=== PATIENT | female | born 1955 ===

== ENCOUNTER 2020-10-19 06:11 | Inpatient (IN) | payer MEDICARE ==
[2020-10-20] MEDS: QUEtiapine 200 MG TAB PO SCH ×2 (01:02→22:10)
[2020-10-20] MEDS: ACETAMINOPHEN 325 MG TAB PO PRN ×3 (01:02→20:36)
--- NOTE | 2020-10-20 08:56 | History and Physical Report ---
GP History & Physical - History of Present Illness Date of admission: 10/19/20 Date of Examination: 10/20/20 Reason for Admission: Danger to self, Failure of Outpatient Treatment, Severe anxiety/depression History of Present Illness: Per Admission Note: pt reported having a lot of family confusion and miscommunication and animosity at home which was overwhelming for her; this resulted in her intentionally overdosing on valium to end her life. Wendy Bryan is a 65y/o female patient who was admitted to [facility] for depression and suicidal attempt. The patient is from [place], [place] and states she was having a lot of family issues. The patient says her 14y/o talks openly about sex and she has problems out of her. She says she is depressed and feels overwhelmed. The patient denies hallucinations of any kind. She says she has a history of Bipolar, and multiple personality disorder. She could not remember her meds. She denies any illicit drug use, alcohol, and nicotine use. The patient says her mind was racing last night but says she slept well after being given medication. PAST PSYCHIATRIC HISTORY: Diagnoses: Bipolar, multiple personality disorder Suicide attempts or Self-harm behavior: Denies Prior psychiatric hospitalizations: Denies Substance Abuse history: Denies Previous psychiatric medications tried: Could not remember Outpatient treatment: Yes PAST MEDICAL HISTORY: None reported Family Psychiatric History: None reported or documented SOCIAL HISTORY Marital Status: Living Arrangements: with mother and daughter Employment Status: Retired Access to guns/weapons: Denies Education: high school History of Abuse: Denies Legal History: None reported REVIEW OF SYSTEMS Constitutional: Negative for weight loss ENT: Negative for stridor Respiratory: Negative for cough or hemoptysis All other systems reviewed and are negative MENTAL STATUS EXAMINATION General Appearance and Behavior: Age appropriate, good hygiene, wearing appropriate clothes, fair eye contact, calm, cooperative Cooperation: Participating/engaged Psychomotor Behavior: Psychomotor normal Mood: depressed Affect and affective range: Congruent with stated mood Thought Process: goal directed Thought Content: hopelessness Speech: Normal rate, volume and rhythm Suicidal Ideation: Yes Homicidal Ideation: Denies Hallucinations: Denies Delusions: None elicited Impulse Control: Impaired Insight and Judgment: Limited insight and judgment Memory: Limited Attention: Normal Orientation: Alert, oriented Assessment and Plan (1) Bipolar Disorder Treatment Plan Patient admitted for inpatient psychiatric evaluation, medication adjustment and close monitoring The patient's behavior, mood, sleep and appetite will be closely monitored. Patient enrolled in individual and group therapeutic sessions and encouraged to attend. Patient provided with a safe and structured environment. Patient's physical health needs will be addressed by the Hospitalist. Hospitalist Consulted Labs including CBC, CMP, Lipid profile and Hemoglobin A1C levels ordered for baseline reference Social Assessment will be completed and the Genomics Scientist will work with patient and family to ensure a suitable and safe disposition Medication adjustment will be made as clinically indicated Restarted home medications Decreased Valium Usual Wellness Hinduism/Preservation: - Start Trazodone 50 mg po QHS & 50 mg po QHS PRN between 10 PM & 2 AM for insomnia - Start Melatonin 5 mg po QHS to promote circadian rhythm - Start [place]-3 for brain health, reduce impulsivity, and as adjunctive treatment for mood disorder, continue upon discharge given overall benefits. - Start B1 prophylaxis with 200 mg po for 5 days The patient agreed on the treatment plan, understood the risk, benefit, alternative treatment, potential consequence of no treatment, and gave informed consent. Initial Certification I certify that the inpatient psychiatric services are required for treatment that could reasonably be expected to improve the patient's condition for depression and suicidal thoughts Estimated days: 7 Post hospital care: primary care provider, psychiatric provider Legal Status: Voluntary Reaction to Hospitalization: Accepting Medications and Allergies Allergies Allergy/AdvReac Type Severity Reaction Status Date / Time No Known Allergies Allergy Verified 10/20/20 00:56 Home Medications Medication Instructions Recorded Confirmed Last Taken Type Acetaminophen [Tylenol] 2 tab PO Q6HR 10/20/20 10/20/20 Unknown History Amoxicillin/Potassium Clav 875 mg PO Q12HR 10/20/20 10/20/20 Unknown History [Augmentin 875-125 Tablet] Cyclobenzaprine [Flexeril 10 MG 10 mg PO TID 10/20/20 10/20/20 Unknown History TAB] Divalproex ER [Depakote ER] 500 mg PO BID 10/20/20 10/20/20 Unknown History Gabapentin 400 mg PO TID 10/20/20 10/20/20 Unknown History Meloxicam [Mobic] 15 mg PO DAILY 10/20/20 10/20/20 Unknown History Omeprazole 40 mg PO DAILY 10/20/20 10/20/20 Unknown History QUEtiapine [SEROquel] 200 mg PO QHS 10/20/20 10/20/20 Unknown History Sertraline [Zoloft] 50 mg PO DAILY 10/20/20 10/20/20 Unknown History Simvastatin 40 mg PO HS 10/20/20 10/20/20 Unknown History Venlafaxine HCl [Venlafaxine HCl 150 mg PO DAILY 10/20/20 10/20/20 Unknown History ER] diazePAM TAB [Valium] 5 mg PO BID 10/20/20 10/20/20 Unknown History traMADoL [Ultram 50 MG tab] 50 mg PO PRN PRN 10/20/20 10/20/20 Unknown History Active Meds: Active Medications Acetaminophen (Acetaminophen 325 Mg Tab) 650 mg PO Q6H PRN PRN Reason: Pain, Mild (1-3) Last Admin: 10/20/20 01:02 Dose: 650 mg Documented by: Quetiapine Fumarate (Quetiapine 200 Mg Tab) 200 mg PO QHS AMBREEN Last Admin: 10/20/20 01:02 Dose: 200 mg Documented by: Results - Results Labs/Vitals: Laboratory Last Values POC Glucose 82 mg/dL (70-105) 10/19/20 22:37 Last Vital Signs Temp Pulse Resp 18 10/20/20 01:02 BP Pulse Ox Physical Examination - Constitutional Vitals: Vital Signs Temp Pulse Resp BP Pulse Ox 18 10/20/20 01:02 Mental Status Exam - Vital signs Last Vital Signs Temp Pulse Resp 18 10/20/20 01:02 BP Pulse Ox Physician Certification - Certification Statement Physician Certification Statement: This is an acknowledgement statement that WENDY BRYAN is a 65 year old F who requires inpatient psychiatric admission for treatment which could reasonably be expected to improve the patient's condition for Estimated period of time patient will need to remain in the hospital: [ ] Plan for post-hospital care: [ ]
--- NOTE | 2020-10-20 14:26 | Consultation ---
History of Present Illness - Reason for Consult Consult date: 10/20/20 Medical consult Requesting physician: CAROLINE WHEAT - History of Present Illness 65-year-old female patient with significant past medical history of multiple suicide attempts drug overdose , severe depression and anxiety disorder Presented to the physician's office with suicidal attempts per her daughter with intentional overdose with Valium; Patient was stabilized evaluated by [facility] psych admitted today unit, hospitalist services were consulted to resume home medications. Patient is not on home oxygen At the time of my evaluation patient did not have any chest pain or shortness of breath No nausea vomiting or abdominal pain No headache dizziness weakness or numbness Patient's responds to questions appropriately Vital signs reviewed Past History Past Medical History: COPD, hyperlipidemia, other (Bronchial asthma, depression) Past Surgical History: Other (Gastric bypass surgery, abdominoplasty) Social history: full code. denies: smoking, alcohol abuse, prescription drug abuse Family history: no significant family history Medications and Allergies Allergies Allergy/AdvReac Type Severity Reaction Status Date / Time No Known Allergies Allergy Verified 10/20/20 00:56 Home Medications Medication Instructions Recorded Confirmed Last Taken Type Acetaminophen [Tylenol] 2 tab PO Q6HR 10/20/20 10/20/20 Unknown History Amoxicillin/Potassium Clav 875 mg PO Q12HR 10/20/20 10/20/20 Unknown History [Augmentin 875-125 Tablet] Cyclobenzaprine [Flexeril 10 MG 10 mg PO TID 10/20/20 10/20/20 Unknown History TAB] Divalproex ER [Depakote ER] 500 mg PO BID 10/20/20 10/20/20 Unknown History Gabapentin 400 mg PO TID 10/20/20 10/20/20 Unknown History Meloxicam [Mobic] 15 mg PO DAILY 10/20/20 10/20/20 Unknown History Omeprazole 40 mg PO DAILY 10/20/20 10/20/20 Unknown History QUEtiapine [SEROquel] 200 mg PO QHS 10/20/20 10/20/20 Unknown History Sertraline [Zoloft] 50 mg PO DAILY 10/20/20 10/20/20 Unknown History Simvastatin 40 mg PO HS 10/20/20 10/20/20 Unknown History Venlafaxine HCl [Venlafaxine HCl 150 mg PO DAILY 10/20/20 10/20/20 Unknown History ER] diazePAM TAB [Valium] 5 mg PO BID 10/20/20 10/20/20 Unknown History traMADoL [Ultram 50 MG tab] 50 mg PO PRN PRN 10/20/20 10/20/20 Unknown History Active Meds: Active Medications Acetaminophen (Acetaminophen 325 Mg Tab) 650 mg PO Q6H PRN PRN Reason: Pain, Mild (1-3) Last Admin: 10/20/20 01:02 Dose: 650 mg Documented by: Quetiapine Fumarate (Quetiapine 200 Mg Tab) 200 mg PO QHS AMBREEN Last Admin: 10/20/20 01:02 Dose: 200 mg Documented by: Review of Systems Constitutional: weakness, no fever, no chills Ears, nose, mouth and throat: no nasal congestion, no nasal discharge Cardiovascular: no chest pain, no orthopnea, no palpitations Respiratory: no cough, no shortness of breath Gastrointestinal: no nausea, no vomiting, no diarrhea Genitourinary Female: no pelvic pain, no flank pain, no dysuria Musculoskeletal: no myalgias, no arthritis Integumentary: no rash, no lesions Neurological: no paralysis, no weakness, no parathesias Psychiatric: suicidal ideation, disorientation, depression, no anxiety, no memory loss Endocrine: no cold intolerance, no heat intolerance Hematologic/Lymphatic: no easy bruising, no easy bleeding Allergic/Immunologic: no urticaria, no allergic rhinitis Exam - Constitutional Vitals: Temp Pulse Resp BP Pulse Ox 97.1 F L 110 H 18 113/78 94 10/20/20 10:49 10/20/20 10:49 10/20/20 10:49 10/20/20 10:49 10/20/20 10:49 General appearance: Present: no acute distress, well-nourished - EENT Eyes: Present: PERRL, EOM intact - Neck Neck: Present: supple, normal ROM - Respiratory Respiratory effort: normal Respiratory: bilateral: rales, negative: rhonchi - Cardiovascular Rhythm: regular Heart Sounds: Present: S1 & S2 - Extremities Extremities: no ischemia, pulses intact - Abdominal General gastrointestinal: Present: soft, non-tender, tender - Integumentary Integumentary: Present: clear, warm - Musculoskeletal Musculoskeletal: strength equal bilaterally, generalized weakness - Psychiatric Psychiatric: appropriate mood/affect Results - Labs CBC & Chem 7: 10/20/20 14:46 10/20/20 14:46 Assessment and Plan --Possible drug overdose; Supportive care, closely monitor Psych following --History of major depression; Management per psych --History of bronchial asthma; Albuterol inhalers/nebulizers as needed --History of dyslipidemia; Continue statin --Possible UTI; patient was advised Augmentin prior to this admission Resume home Augmentin --Obesity; BMI 30.1 Patient needs weight reduction when medically stable --DVT prophylaxis; SCD while resting Patient is 1013 status in [facility] Management per [facility] We will closely monitor the patient and adjust management as needed Thank you for this consultation call us with questions We will follow the patient as l as needed
[2020-10-20 15:03] LABS: Basophils % (Auto) 0.6 % (0.0-1.8); Eosinophils # (Auto) 0.1 K/mm3 (0.0-0.4); Hematocrit 39.5 % (30.3-42.9); Hemoglobin 12.9 gm/dl (10.1-14.3); Lymphocytes # (Auto) 1.5 K/mm3 (1.2-5.4); Lymphocytes % (Auto) 29.7 % (13.4-35.0); Mean Corpuscular HGB Conc 33 % (30-34); Mean Corpuscular Volume 89 fl (79-97); Monocytes # (Auto) 0.5 K/mm3 (0.0-0.8); Monocytes % (Auto) 10.2 % (0.0-7.3); Platelet Count 249 K/mm3 (140-440); Red Blood Count 4.43 M/mm3 (3.65-5.03); Red Cell Distribution Width 14.9 % (13.2-15.2)
[2020-10-20 15:25] LABS: Alanine Aminotransferase 11 units/L (7-56); Albumin 3.4 g/dL (3.9-5); Blood Urea Nitrogen 10 mg/dL (7-17); Calcium 9.7 mg/dL (8.4-10.2); Chol/HDL Ratio 3.94 %; HDL Cholesterol 51 mg/dL (40-59); Hemolysis Index 5; LDL Cholesterol,Direct 120 mg/dL (50-130)
[2020-10-20 15:27] LABS: BUN/Creatinine Ratio 14
[2020-10-20] MEDS: CYCLOBENZAPRINE 10 MG TAB PO SCH (20:36)
[2020-10-20] MEDS: AMOXICILLIN/K CLAV 875/125MG TAB PO SCH (22:10)
[2020-10-20] MEDS: DIVALPROEX ER 500 MG TAB PO SCH (22:10)
[2020-10-21] MEDS: ACETAMINOPHEN 325 MG TAB PO PRN (06:00)
--- NOTE | 2020-10-21 07:48 | Progress Note ---
Subjective Date of service: 10/21/20 Principal diagnosis: MDD Subjective Comment: Per Nurse Note: Patient has spent most of the day in her room resting in bed. She has had a fair appetite. She complained of headache and received tylenol 650 mg. Pt has a uti and md ordered antibiotic. Patient present with poor eye contact. She denies ah/vh/hi but endorses vague si. Will continue to monitor patient for safety. The patient was seen today, she verbalized feeling a little depressed but better. She says she's been having body aches and didn't sleep well due to this. She also says she's been feeling anxious. She denies hallucinations of any kind. She has passive suicidal thoughts, she states "not really" when asked. She denies homicidal thoughts. She says "I wanna get home where it's warm." Reason for continued inpatient treatment: The patient had a suicidal attempt per OD, and endorses passive suicidal thoughts. Will continue to monitor her to ensue her safety upon discharge. REVIEW OF SYSTEMS Constitutional: Negative for weight loss ENT: Negative for stridor Respiratory: Negative for cough or hemoptysis All other systems reviewed and are negative MENTAL STATUS EXAMINATION General Appearance and Behavior: Age appropriate, good hygiene, wearing appropriate clothes, fair eye contact, calm, cooperative Cooperation: Participating/engaged Psychomotor Behavior: Psychomotor normal Mood: depressed, but better Affect and affective range: Congruent with stated mood Thought Process: goal directed Thought Content: hopelessness Speech: Normal rate, volume and rhythm Suicidal Ideation: Yes Homicidal Ideation: Denies Hallucinations: Denies Delusions: None elicited Impulse Control: Impaired Insight and Judgment: Limited insight and judgment Memory: Limited Attention: Normal Orientation: Alert, oriented Assessment and Plan (1) Bipolar Disorder Treatment Plan Patient admitted for inpatient psychiatric evaluation, medication adjustment and close monitoring The patient's behavior, mood, sleep and appetite will be closely monitored. Patient enrolled in individual and group therapeutic sessions and encouraged to attend. Patient provided with a safe and structured environment. Patient's physical health needs will be addressed by the Hospitalist. Hospitalist Consulted Labs including CBC, CMP, Lipid profile and Hemoglobin A1C levels ordered for baseline reference Valproic Level Social Assessment will be completed and the Roll Forming Machine Operator will work with patient and family to ensure a suitable and safe disposition Medication adjustment will be made as clinically indicated Decreased Valium 5mg po qhs Usual Wellness Voodoo/Preservation: - Start Trazodone 50 mg po QHS & 50 mg po QHS PRN between 10 PM & 2 AM for insomnia - Start Melatonin 5 mg po QHS to promote circadian rhythm - Start [place]-3 for brain health, reduce impulsivity, and as adjunctive treatment for mood disorder, continue upon discharge given overall benefits. - Start B1 prophylaxis with 200 mg po for 5 days The patient agreed on the treatment plan, understood the risk, benefit, alternative treatment, potential consequence of no treatment, and gave informed consent. Initial Certification I certify that the inpatient psychiatric services are required for treatment that could reasonably be expected to improve the patient's condition for depression and suicidal thoughts Estimated days: 5 Post hospital care: primary care provider, psychiatric provider Medications and Allergies Allergies Allergy/AdvReac Type Severity Reaction Status Date / Time No Known Allergies Allergy Verified 10/20/20 00:56 Home Medications Medication Instructions Recorded Confirmed Last Taken Type Acetaminophen [Tylenol] 2 tab PO Q6HR 10/20/20 10/20/20 Unknown History Amoxicillin/Potassium Clav 875 mg PO Q12HR 10/20/20 10/20/20 Unknown History [Augmentin 875-125 Tablet] Cyclobenzaprine [Flexeril 10 MG 10 mg PO TID 10/20/20 10/20/20 Unknown History TAB] Divalproex ER [Depakote ER] 500 mg PO BID 10/20/20 10/20/20 Unknown History Gabapentin 400 mg PO TID 10/20/20 10/20/20 Unknown History Meloxicam [Mobic] 15 mg PO DAILY 10/20/20 10/20/20 Unknown History Omeprazole 40 mg PO DAILY 10/20/20 10/20/20 Unknown History QUEtiapine [SEROquel] 200 mg PO QHS 10/20/20 10/20/20 Unknown History Sertraline [Zoloft] 50 mg PO DAILY 10/20/20 10/20/20 Unknown History Simvastatin 40 mg PO HS 10/20/20 10/20/20 Unknown History Venlafaxine HCl [Venlafaxine HCl 150 mg PO DAILY 10/20/20 10/20/20 Unknown History ER] diazePAM TAB [Valium] 5 mg PO BID 10/20/20 10/20/20 Unknown History traMADoL [Ultram 50 MG tab] 50 mg PO PRN PRN 10/20/20 10/20/20 Unknown History Active Meds: Active Medications Acetaminophen (Acetaminophen 325 Mg Tab) 650 mg PO Q6H PRN PRN Reason: Pain, Mild (1-3) Last Admin: 10/21/20 06:00 Dose: 650 mg Documented by: Amoxicillin/Clavulanate Potassium (Amoxicillin/K Clav 875/125mg Tab) 1 each PO Q12HR [facility]; Protocol Stop: 10/27/20 10:01 Last Admin: 10/20/20 22:10 Dose: 1 each Documented by: Cyclobenzaprine HCl (Cyclobenzaprine 10 Mg Tab) 10 mg PO TID [facility] Last Admin: 10/20/20 20:36 Dose: 10 mg Documented by: Divalproex Sodium (Divalproex Er 500 Mg Tab) 500 mg PO BID [facility] Last Admin: 10/20/20 22:10 Dose: 500 mg Documented by: Meloxicam (Meloxicam 7.5 Mg Tab) 15 mg PO QDAY [facility] Quetiapine Fumarate (Quetiapine 200 Mg Tab) 200 mg PO QHS [facility] Last Admin: 10/20/20 22:10 Dose: 200 mg Documented by: Sertraline HCl (Sertraline 50 Mg Tab) 50 mg PO DAILY [facility] Results - Results Labs/Vitals: Laboratory Last Values WBC 5.1 K/mm3 (4.5-11.0) 10/20/20 14:46 RBC 4.43 M/mm3 (3.65-5.03) 10/20/20 14:46 Hgb 12.9 gm/dl (10.1-14.3) 10/20/20 14:46 Hct 39.5 % (30.3-42.9) 10/20/20 14:46 MCV 89 fl (79-97) 10/20/20 14:46 MCH 29 pg (28-32) 10/20/20 14:46 MCHC 33 % (30-34) 10/20/20 14:46 RDW 14.9 % (13.2-15.2) 10/20/20 14:46 Plt Count 249 K/mm3 (140-440) 10/20/20 14:46 Lymph % (Auto) 29.7 % (13.4-35.0) 10/20/20 14:46 Lares % (Auto) 10.2 % (0.0-7.3) H 10/20/20 14:46 Eos % (Auto) 2.0 % (0.0-4.3) 10/20/20 14:46 Baso % (Auto) 0.6 % (0.0-1.8) 10/20/20 14:46 Lymph # (Auto) 1.5 K/mm3 (1.2-5.4) 10/20/20 14:46 Lares # (Auto) 0.5 K/mm3 (0.0-0.8) 10/20/20 14:46 Eos # (Auto) 0.1 K/mm3 (0.0-0.4) 10/20/20 14:46 Baso # (Auto) 0.0 K/mm3 (0.0-0.1) 10/20/20 14:46 Seg Neutrophils % 57.5 % (40.0-70.0) 10/20/20 14:46 Seg Neutrophils # 2.9 K/mm3 (1.8-7.7) 10/20/20 14:46 Sodium 141 mmol/L (137-145) 10/20/20 14:46 Potassium 4.8 mmol/L (3.6-5.0) 10/20/20 14:46 Chloride 103.0 mmol/L (98-107) 10/20/20 14:46 Carbon Dioxide 30 mmol/L (22-30) 10/20/20 14:46 Anion Gap 13 mmol/L 10/20/20 14:46 BUN 10 mg/dL (7-17) 10/20/20 14:46 Creatinine 0.7 mg/dL (0.6-1.2) 10/20/20 14:46 Estimated GFR > 60 ml/min 10/20/20 14:46 BUN/Creatinine Ratio 14 % 10/20/20 14:46 Glucose 110 mg/dL (65-100) H 10/20/20 14:46 POC Glucose 82 mg/dL (70-105) 10/19/20 22:37 Hemoglobin A1c 5.0 % (4-6) 10/20/20 14:46 Calcium 9.7 mg/dL (8.4-10.2) 10/20/20 14:46 Total Bilirubin < 0.20 mg/dL (0.1-1.2) 10/20/20 14:46 AST 15 units/L (5-40) 10/20/20 14:46 ALT 11 units/L (7-56) 10/20/20 14:46 Alkaline Phosphatase 96 units/L (35-129) 10/20/20 14:46 Total Protein 6.7 g/dL (6.3-8.2) 10/20/20 14:46 Albumin 3.4 g/dL (3.9-5) L 10/20/20 14:46 Albumin/Globulin Ratio 1.0 % 10/20/20 14:46 Triglycerides 194 mg/dL (2-149) H 10/20/20 14:46 Cholesterol 201 mg/dL (50-199) H 10/20/20 14:46 LDL Cholesterol Direct 120 mg/dL (50-130) 10/20/20 14:46 HDL Cholesterol 51 mg/dL (40-59) 10/20/20 14:46 Cholesterol/HDL Ratio 3.94 % 10/20/20 14:46 TSH 4.050 mlU/mL (0.270-4.200) 10/20/20 14:46 Last Vital Signs Temp 97.6 F 10/20/20 22:00 Pulse 110 H 10/20/20 22:00 Resp 18 10/21/20 06:00 BP 101/55 10/20/20 22:00 Pulse Ox 96 10/20/20 22:00
[2020-10-21] MEDS: MELOXICAM 7.5 MG TAB PO SCH (09:08)
[2020-10-21] MEDS: CYCLOBENZAPRINE 10 MG TAB PO SCH ×3 (09:08→21:27)
[2020-10-21] MEDS: GABAPENTIN 100 MG CAP PO SCH ×3 (09:08→21:28)
[2020-10-21] MEDS: DIVALPROEX ER 500 MG TAB PO SCH ×2 (09:09→21:28)
[2020-10-21] MEDS: AMOXICILLIN/K CLAV 875/125MG TAB PO SCH ×2 (09:09→21:27)
[2020-10-21] MEDS ORDERED: NON-FORMULARY EACH (Meloxicam [Mobic] 15 MG Tablet) PO SCH (10:00)
[2020-10-21] MEDS ORDERED: SERTRALINE 50 MG TAB PO SCH (10:00)
[2020-10-21] MEDS ORDERED: NON-FORMULARY EACH (Acetaminophen [Tylenol] 325 MG Capsule) PO SCH (12:00)
[2020-10-21] MEDS: ACETAMINOPHEN 325 MG TAB PO SCH ×2 (12:18→17:54)
--- NOTE | 2020-10-21 20:11 | Progress Note ---
Assessment and Plan Assessment and plan: --Possible drug overdose; Supportive care, closely monitor Psych following, no new complaints --History of major depression; Management per psych Patient denies depressive thoughts, denies suicidal ideation --History of bronchial asthma; Albuterol inhalers/nebulizers as needed --History of dyslipidemia; Continue statin --Possible UTI; patient was advised Augmentin prior to this admission Resume home Augmentin --Obesity; BMI 30.1 Patient needs weight reduction when medically stable --DVT prophylaxis; SCD while resting Patient is 1013 status in [facility] psych Management per [facility] psych We will closely monitor the patient and adjust management as needed Continue current management Plan of care reviewed with the patient and her nurse Call us with any questions History Interval history: I have seen and examined the patient today Patient is very cheerful and happy sitting in the activities room Says that she feels better, no new complaints Vital signs noted Hospitalist Physical - Constitutional Vitals: Temp Pulse Resp BP Pulse Ox 97.3 F L 111 H 18 96/50 94 10/21/20 09:20 10/21/20 09:20 10/21/20 17:54 10/21/20 09:20 10/21/20 09:20 General appearance: Present: no acute distress, well-nourished - EENT Eyes: Present: PERRL, EOM intact - Neck Neck: Present: supple, normal ROM - Respiratory Respiratory effort: normal Respiratory: bilateral: diminished, negative: rales, rhonchi, wheezing - Cardiovascular Rhythm: regular Heart Sounds: Present: S1 & S2 - Extremities Extremities: no ischemia, No edema - Abdominal General gastrointestinal: soft, non-tender, non-distended, normal bowel sounds - Integumentary Integumentary: Present: clear, warm - Psychiatric Psychiatric: appropriate mood/affect, cooperative - Neurologic Neurologic: CNII-XII intact, moves all extremities Results - Labs CBC & Chem 7: 10/20/20 14:46 10/20/20 14:46 Labs: Laboratory Last Values WBC 5.1 K/mm3 (4.5-11.0) 10/20/20 14:46 RBC 4.43 M/mm3 (3.65-5.03) 10/20/20 14:46 Hgb 12.9 gm/dl (10.1-14.3) 10/20/20 14:46 Hct 39.5 % (30.3-42.9) 10/20/20 14:46 MCV 89 fl (79-97) 10/20/20 14:46 MCH 29 pg (28-32) 10/20/20 14:46 MCHC 33 % (30-34) 10/20/20 14:46 RDW 14.9 % (13.2-15.2) 10/20/20 14:46 Plt Count 249 K/mm3 (140-440) 10/20/20 14:46 Lymph % (Auto) 29.7 % (13.4-35.0) 10/20/20 14:46 [place] % (Auto) 10.2 % (0.0-7.3) H 10/20/20 14:46 Eos % (Auto) 2.0 % (0.0-4.3) 10/20/20 14:46 Baso % (Auto) 0.6 % (0.0-1.8) 10/20/20 14:46 Lymph # (Auto) 1.5 K/mm3 (1.2-5.4) 10/20/20 14:46 [place] # (Auto) 0.5 K/mm3 (0.0-0.8) 10/20/20 14:46 Eos # (Auto) 0.1 K/mm3 (0.0-0.4) 10/20/20 14:46 Baso # (Auto) 0.0 K/mm3 (0.0-0.1) 10/20/20 14:46 Seg Neutrophils % 57.5 % (40.0-70.0) 10/20/20 14:46 Seg Neutrophils # 2.9 K/mm3 (1.8-7.7) 10/20/20 14:46 Sodium 141 mmol/L (137-145) 10/20/20 14:46 Potassium 4.8 mmol/L (3.6-5.0) 10/20/20 14:46 Chloride 103.0 mmol/L (98-107) 10/20/20 14:46 Carbon Dioxide 30 mmol/L (22-30) 10/20/20 14:46 Anion Gap 13 mmol/L 10/20/20 14:46 BUN 10 mg/dL (7-17) 10/20/20 14:46 Creatinine 0.7 mg/dL (0.6-1.2) 10/20/20 14:46 Estimated GFR > 60 ml/min 10/20/20 14:46 BUN/Creatinine Ratio 14 % 10/20/20 14:46 Glucose 110 mg/dL (65-100) H 10/20/20 14:46 POC Glucose 82 mg/dL (70-105) 10/19/20 22:37 Hemoglobin A1c 5.0 % (4-6) 10/20/20 14:46 Calcium 9.7 mg/dL (8.4-10.2) 10/20/20 14:46 Total Bilirubin < 0.20 mg/dL (0.1-1.2) 10/20/20 14:46 AST 15 units/L (5-40) 10/20/20 14:46 ALT 11 units/L (7-56) 10/20/20 14:46 Alkaline Phosphatase 96 units/L (35-129) 10/20/20 14:46 Total Protein 6.7 g/dL (6.3-8.2) 10/20/20 14:46 Albumin 3.4 g/dL (3.9-5) L 10/20/20 14:46 Albumin/Globulin Ratio 1.0 % 10/20/20 14:46 Triglycerides 194 mg/dL (2-149) H 10/20/20 14:46 Cholesterol 201 mg/dL (50-199) H 10/20/20 14:46 LDL Cholesterol Direct 120 mg/dL (50-130) 10/20/20 14:46 HDL Cholesterol 51 mg/dL (40-59) 10/20/20 14:46 Cholesterol/HDL Ratio 3.94 % 10/20/20 14:46 TSH 4.050 mlU/mL (0.270-4.200) 10/20/20 14:46 Valproic Acid 12.8 ug/mL (50-100) L 10/21/20 08:39 Holt/IV: Voiding Method Toilet Active Medications - Current Medications Current Medications: Generic Name Dose Route Start Last Admin Trade Name Freq PRN Reason Stop Dose Admin Acetaminophen 650 mg 10/21/20 12:00 10/21/20 17:54 Acetaminophen 325 Mg Tab PO 650 mg Q6HR AMBREEN Administration Amoxicillin/Clavulanate Potassium 1 each 10/20/20 22:00 10/21/20 09:09 Amoxicillin/K Clav 875/125mg Tab PO 10/27/20 10:01 1 each Q12HR AMBREEN Administration Protocol Cyclobenzaprine HCl 10 mg 10/20/20 20:00 10/21/20 14:01 Cyclobenzaprine 10 Mg Tab PO 10 mg TID AMBREEN Administration Diazepam 5 mg 10/21/20 22:00 Diazepam 5 Mg Tab PO QHS AMBREEN Divalproex Sodium 500 mg 10/20/20 22:00 10/21/20 09:09 Divalproex Er 500 Mg Tab PO 500 mg BID AMBREEN Administration Gabapentin 200 mg 10/21/20 09:00 10/21/20 14:01 Gabapentin 100 Mg Cap PO 200 mg TID AMBREEN Administration Meloxicam 15 mg 10/21/20 10:00 10/21/20 09:08 Meloxicam 7.5 Mg Tab PO 15 mg QDAY AMBREEN Administration Quetiapine Fumarate 200 mg 10/20/20 01:00 10/20/20 22:10 Quetiapine 200 Mg Tab PO 200 mg QHS AMBREEN Administration Sertraline HCl 50 mg 10/21/20 10:00 10/21/20 09:09 Sertraline 50 Mg Tab PO 50 mg DAILY AMBREEN Administration
[2020-10-21] MEDS: QUEtiapine 200 MG TAB PO SCH (21:27)
[2020-10-21] MEDS ORDERED: diazePAM 5 MG TAB PO SCH (22:00)
[2020-10-22] MEDS: ACETAMINOPHEN 325 MG TAB PO SCH ×4 (02:30→17:45)
--- NOTE | 2020-10-22 08:49 | Progress Note ---
Subjective Date of service: 10/22/20 Principal diagnosis: MDD Subjective Comment: Per Nurse Note: Pt received in the dayroom A&Ox4 and calm. Pt denies AVH, HI and SI, she states "I feel so much better". Close monitoring continues. The patient was seen today, she is withdrawn and appears down. She denies SI/HI, but it doesn't appear the patient is being upfront. She's reported more than once that she "feels better." When asking the patient how can I believe she want hurt herself again, she replies "because I'm sure the doctor wont give me any more Valium." This lets me know the patient would attempt to hurt herself again. I state to the patient that not having Valium is passive suicidal thoughts. The patient then burst into tears and states "yes, if I was pushed then I would hurt myself." She says "If things are bad, I just don't know." Reason for continued inpatient treatment: The patient had a suicidal attempt per OD, and endorses passive suicidal thoughts. The patient is being weaned off of long-term use of Valium, this can only be done safely inpatient. Valium is also the patient's means of ending her life. Will continue to treat and monitor this patient to ensue her safety upon discharge. REVIEW OF SYSTEMS Constitutional: Negative for weight loss ENT: Negative for stridor Respiratory: Negative for cough or hemoptysis All other systems reviewed and are negative MENTAL STATUS EXAMINATION General Appearance and Behavior: Age appropriate, good hygiene, wearing appropriate clothes, fair eye contact, withdrawn, cooperative Cooperation: Participating/engaged Psychomotor Behavior: Psychomotor normal Mood: depressed Affect and affective range: Congruent with stated mood, tearful, restricted Thought Process: goal directed Thought Content: hopelessness Speech: Normal rate, volume and rhythm Suicidal Ideation: Yes Homicidal Ideation: Denies Hallucinations: Denies Delusions: None elicited Impulse Control: Impaired Insight and Judgment: Limited insight and judgment Memory: Limited Attention: Normal Orientation: Alert, oriented Assessment and Plan (1) Bipolar Disorder Treatment Plan Patient admitted for inpatient psychiatric evaluation, medication adjustment and close monitoring The patient's behavior, mood, sleep and appetite will be closely monitored. Patient enrolled in individual and group therapeutic sessions and encouraged to attend. Patient provided with a safe and structured environment. Patient's physical health needs will be addressed by the Hospitalist. Hospitalist Consulted Labs including CBC, CMP, Lipid profile and Hemoglobin A1C levels ordered for baseline reference Valproic Level level 12.8 Social Assessment will be completed and the Bicycle Fitter will work with patient and family to ensure a suitable and safe disposition Medication adjustment will be made as clinically indicated Decreased Valium 2mg po qhs Increase Depakote DR 500mg po TID Increased Zoloft 75mg (1.5 tab) qd Usual Wellness Congregational/Preservation: - Start Trazodone 50 mg po QHS & 50 mg po QHS PRN between 10 PM & 2 AM for insomnia - Start Melatonin 5 mg po QHS to promote circadian rhythm - Start [place]-3 for brain health, reduce impulsivity, and as adjunctive treatment for mood disorder, continue upon discharge given overall benefits. - Start B1 prophylaxis with 200 mg po for 5 days The patient agreed on the treatment plan, understood the risk, benefit, alternative treatment, potential consequence of no treatment, and gave informed consent. Estimated days: 5 Post hospital care: primary care provider, psychiatric provider Medications and Allergies Allergies Allergy/AdvReac Type Severity Reaction Status Date / Time No Known Allergies Allergy Verified 10/20/20 00:56 Home Medications Medication Instructions Recorded Confirmed Last Taken Type Acetaminophen [Tylenol] 2 tab PO Q6HR 10/20/20 10/20/20 Unknown History Amoxicillin/Potassium Clav 875 mg PO Q12HR 10/20/20 10/20/20 Unknown History [Augmentin 875-125 Tablet] Cyclobenzaprine [Flexeril 10 MG 10 mg PO TID 10/20/20 10/20/20 Unknown History TAB] Divalproex ER [Depakote ER] 500 mg PO BID 10/20/20 10/20/20 Unknown History Gabapentin 400 mg PO TID 10/20/20 10/20/20 Unknown History Meloxicam [Mobic] 15 mg PO DAILY 10/20/20 10/20/20 Unknown History Omeprazole 40 mg PO DAILY 10/20/20 10/20/20 Unknown History QUEtiapine [SEROquel] 200 mg PO QHS 10/20/20 10/20/20 Unknown History Sertraline [Zoloft] 50 mg PO DAILY 10/20/20 10/20/20 Unknown History Simvastatin 40 mg PO HS 10/20/20 10/20/20 Unknown History Venlafaxine HCl [Venlafaxine HCl 150 mg PO DAILY 10/20/20 10/20/20 Unknown History ER] diazePAM TAB [Valium] 5 mg PO BID 10/20/20 10/20/20 Unknown History traMADoL [Ultram 50 MG tab] 50 mg PO PRN PRN 10/20/20 10/20/20 Unknown History Active Meds: Active Medications Acetaminophen (Acetaminophen 325 Mg Tab) 650 mg PO Q6HR [facility] Last Admin: 10/22/20 06:37 Dose: 650 mg Documented by: Amoxicillin/Clavulanate Potassium (Amoxicillin/K Clav 875/125mg Tab) 1 each PO Q12HR [facility]; Protocol Stop: 10/27/20 10:01 Last Admin: 10/21/20 21:27 Dose: 1 each Documented by: Cyclobenzaprine HCl (Cyclobenzaprine 10 Mg Tab) 10 mg PO TID [facility] Last Admin: 10/21/20 21:27 Dose: 10 mg Documented by: Diazepam (Diazepam 5 Mg Tab) 5 mg PO QHS [facility] Last Admin: 10/21/20 21:29 Dose: 5 mg Documented by: Divalproex Sodium (Divalproex Er 500 Mg Tab) 500 mg PO BID [facility] Last Admin: 10/21/20 21:28 Dose: 500 mg Documented by: Gabapentin (Gabapentin 100 Mg Cap) 200 mg PO TID [facility] Last Admin: 10/21/20 21:28 Dose: 200 mg Documented by: Meloxicam (Meloxicam 7.5 Mg Tab) 15 mg PO QDAY [facility] Last Admin: 10/21/20 09:08 Dose: 15 mg Documented by: Quetiapine Fumarate (Quetiapine 200 Mg Tab) 200 mg PO QHS [facility] Last Admin: 10/21/20 21:27 Dose: 200 mg Documented by: Sertraline HCl (Sertraline 50 Mg Tab) 50 mg PO DAILY [facility] Last Admin: 10/21/20 09:09 Dose: 50 mg Documented by: Results - Results Labs/Vitals: Laboratory Last Values WBC 5.1 K/mm3 (4.5-11.0) 10/20/20 14:46 RBC 4.43 M/mm3 (3.65-5.03) 10/20/20 14:46 Hgb 12.9 gm/dl (10.1-14.3) 10/20/20 14:46 Hct 39.5 % (30.3-42.9) 10/20/20 14:46 MCV 89 fl (79-97) 10/20/20 14:46 MCH 29 pg (28-32) 10/20/20 14:46 MCHC 33 % (30-34) 10/20/20 14:46 RDW 14.9 % (13.2-15.2) 10/20/20 14:46 Plt Count 249 K/mm3 (140-440) 10/20/20 14:46 Lymph % (Auto) 29.7 % (13.4-35.0) 10/20/20 14:46 [place] % (Auto) 10.2 % (0.0-7.3) H 10/20/20 14:46 Eos % (Auto) 2.0 % (0.0-4.3) 10/20/20 14:46 Baso % (Auto) 0.6 % (0.0-1.8) 10/20/20 14:46 Lymph # (Auto) 1.5 K/mm3 (1.2-5.4) 10/20/20 14:46 [place] # (Auto) 0.5 K/mm3 (0.0-0.8) 10/20/20 14:46 Eos # (Auto) 0.1 K/mm3 (0.0-0.4) 10/20/20 14:46 Baso # (Auto) 0.0 K/mm3 (0.0-0.1) 10/20/20 14:46 Seg Neutrophils % 57.5 % (40.0-70.0) 10/20/20 14:46 Seg Neutrophils # 2.9 K/mm3 (1.8-7.7) 10/20/20 14:46 Sodium 141 mmol/L (137-145) 10/20/20 14:46 Potassium 4.8 mmol/L (3.6-5.0) 10/20/20 14:46 Chloride 103.0 mmol/L (98-107) 10/20/20 14:46 Carbon Dioxide 30 mmol/L (22-30) 10/20/20 14:46 Anion Gap 13 mmol/L 10/20/20 14:46 BUN 10 mg/dL (7-17) 10/20/20 14:46 Creatinine 0.7 mg/dL (0.6-1.2) 10/20/20 14:46 Estimated GFR > 60 ml/min 10/20/20 14:46 BUN/Creatinine Ratio 14 % 10/20/20 14:46 Glucose 110 mg/dL (65-100) H 10/20/20 14:46 POC Glucose 82 mg/dL (70-105) 10/19/20 22:37 Hemoglobin A1c 5.0 % (4-6) 10/20/20 14:46 Calcium 9.7 mg/dL (8.4-10.2) 10/20/20 14:46 Total Bilirubin < 0.20 mg/dL (0.1-1.2) 10/20/20 14:46 AST 15 units/L (5-40) 10/20/20 14:46 ALT 11 units/L (7-56) 10/20/20 14:46 Alkaline Phosphatase 96 units/L (35-129) 10/20/20 14:46 Total Protein 6.7 g/dL (6.3-8.2) 10/20/20 14:46 Albumin 3.4 g/dL (3.9-5) L 10/20/20 14:46 Albumin/Globulin Ratio 1.0 % 10/20/20 14:46 Triglycerides 194 mg/dL (2-149) H 10/20/20 14:46 Cholesterol 201 mg/dL (50-199) H 10/20/20 14:46 LDL Cholesterol Direct 120 mg/dL (50-130) 10/20/20 14:46 HDL Cholesterol 51 mg/dL (40-59) 10/20/20 14:46 Cholesterol/HDL Ratio 3.94 % 10/20/20 14:46 TSH 4.050 mlU/mL (0.270-4.200) 10/20/20 14:46 Valproic Acid 12.8 ug/mL (50-100) L 10/21/20 08:39 Last Vital Signs Temp 98.2 F 10/21/20 19:13 Pulse 96 H 10/21/20 19:13 Resp 16 10/21/20 19:13 BP 120/55 10/21/20 19:13 Pulse Ox 92 10/21/20 19:13
[2020-10-22] MEDS: GABAPENTIN 100 MG CAP PO SCH ×3 (09:37→20:58)
[2020-10-22] MEDS: MELOXICAM 7.5 MG TAB PO SCH (09:37)
[2020-10-22] MEDS: CYCLOBENZAPRINE 10 MG TAB PO SCH ×3 (09:37→20:58)
[2020-10-22] MEDS: AMOXICILLIN/K CLAV 875/125MG TAB PO SCH ×2 (09:38→21:06)
[2020-10-22] MEDS: SERTRALINE 50 MG TAB PO SCH (09:44)
[2020-10-22] MEDS: DIVALPROEX ER 500 MG TAB PO SCH ×2 (13:53→20:58)
[2020-10-22] MEDS: QUEtiapine 200 MG TAB PO SCH (21:06)
[2020-10-22] MEDS ORDERED: diazePAM 2 MG TAB PO SCH (22:00)
[2020-10-23] MEDS: ACETAMINOPHEN 325 MG TAB PO SCH ×4 (00:20→17:00)
--- NOTE | 2020-10-23 08:21 | Progress Note ---
Subjective Date of service: 10/23/20 Principal diagnosis: MDD Subjective Comment: Per Nurse Note: Pt received in the day room watching TV and observed interacting appropriately with peers. Denies pain "at this time," SI, or HI. No AVH reported or observed. Will continue to monitor. The patient was seen today, she appears better today than yesterday. She denies SI/HI. When asked what changed from yesterday to today, the patient replied "we had good groups yesterday and I had a chance to think about myself." She denies hallucinations of any kind. Reason for continued inpatient treatment: The patient had a suicidal attempt per OD, and endorses passive suicidal thoughts. The patient is being weaned off of long-term use of Valium, this can only be done safely inpatient. Valium is also the patient's means of ending her life. Will continue to treat and monitor this patient to ensue her safety upon discharge. REVIEW OF SYSTEMS Constitutional: Negative for weight loss ENT: Negative for stridor Respiratory: Negative for cough or hemoptysis All other systems reviewed and are negative MENTAL STATUS EXAMINATION General Appearance and Behavior: Age appropriate, good hygiene, wearing appropriate clothes, fair eye contact, withdrawn, cooperative Cooperation: Participating/engaged Psychomotor Behavior: Psychomotor normal Mood: depressed Affect and affective range: Congruent with stated mood, tearful, restricted Thought Process: goal directed Thought Content: hopelessness Speech: Normal rate, volume and rhythm Suicidal Ideation: Yes Homicidal Ideation: Denies Hallucinations: Denies Delusions: None elicited Impulse Control: Impaired Insight and Judgment: Limited insight and judgment Memory: Limited Attention: Normal Orientation: Alert, oriented Assessment and Plan (1) Bipolar Disorder Treatment Plan Patient admitted for inpatient psychiatric evaluation, medication adjustment and close monitoring The patient's behavior, mood, sleep and appetite will be closely monitored. Patient enrolled in individual and group therapeutic sessions and encouraged to attend. Patient provided with a safe and structured environment. Patient's physical health needs will be addressed by the Hospitalist. Hospitalist Consulted Labs including CBC, CMP, Lipid profile and Hemoglobin A1C levels ordered for baseline reference Valproic Level level 12.8 Social Assessment will be completed and the Biological Photographer will work with patient and family to ensure a suitable and safe disposition Medication adjustment will be made as clinically indicated Decreased Valium 1mg po qhs Increased Depakote DR 500mg po TID yesterday Continue Zoloft 75mg (1.5 tab) qd Usual Wellness Confucianism/Preservation: - Start Trazodone 50 mg po QHS & 50 mg po QHS PRN between 10 PM & 2 AM for insomnia - Start Melatonin 5 mg po QHS to promote circadian rhythm - Start [place]-3 for brain health, reduce impulsivity, and as adjunctive treatment for mood disorder, continue upon discharge given overall benefits. - Start B1 prophylaxis with 200 mg po for 5 days The patient agreed on the treatment plan, understood the risk, benefit, alternative treatment, potential consequence of no treatment, and gave informed consent. Estimated days: 5 Post hospital care: primary care provider, psychiatric provider Medications and Allergies Allergies Allergy/AdvReac Type Severity Reaction Status Date / Time No Known Allergies Allergy Verified 10/20/20 00:56 Home Medications Medication Instructions Recorded Confirmed Last Taken Type Acetaminophen [Tylenol] 2 tab PO Q6HR 10/20/20 10/20/20 Unknown History Amoxicillin/Potassium Clav 875 mg PO Q12HR 10/20/20 10/20/20 Unknown History [Augmentin 875-125 Tablet] Cyclobenzaprine [Flexeril 10 MG 10 mg PO TID 10/20/20 10/20/20 Unknown History TAB] Divalproex ER [Depakote ER] 500 mg PO BID 10/20/20 10/20/20 Unknown History Gabapentin 400 mg PO TID 10/20/20 10/20/20 Unknown History Meloxicam [Mobic] 15 mg PO DAILY 10/20/20 10/20/20 Unknown History Omeprazole 40 mg PO DAILY 10/20/20 10/20/20 Unknown History QUEtiapine [SEROquel] 200 mg PO QHS 10/20/20 10/20/20 Unknown History Sertraline [Zoloft] 50 mg PO DAILY 10/20/20 10/20/20 Unknown History Simvastatin 40 mg PO HS 10/20/20 10/20/20 Unknown History Venlafaxine HCl [Venlafaxine HCl 150 mg PO DAILY 10/20/20 10/20/20 Unknown History ER] diazePAM TAB [Valium] 5 mg PO BID 10/20/20 10/20/20 Unknown History traMADoL [Ultram 50 MG tab] 50 mg PO PRN PRN 10/20/20 10/20/20 Unknown History Active Meds: Active Medications Acetaminophen (Acetaminophen 325 Mg Tab) 650 mg PO Q6HR [facility] Last Admin: 10/23/20 06:22 Dose: 650 mg Documented by: Amoxicillin/Clavulanate Potassium (Amoxicillin/K Clav 875/125mg Tab) 1 each PO Q12HR [facility]; Protocol Stop: 10/27/20 10:01 Last Admin: 10/22/20 21:06 Dose: 1 each Documented by: Cyclobenzaprine HCl (Cyclobenzaprine 10 Mg Tab) 10 mg PO TID [facility] Last Admin: 10/22/20 20:58 Dose: 10 mg Documented by: Diazepam (Diazepam 2 Mg Tab) 2 mg PO QHS [facility] Last Admin: 10/22/20 21:06 Dose: 2 mg Documented by: Divalproex Sodium (Divalproex Er 500 Mg Tab) 500 mg PO TID [facility] Last Admin: 10/22/20 20:58 Dose: 500 mg Documented by: Gabapentin (Gabapentin 100 Mg Cap) 200 mg PO TID [facility] Last Admin: 10/22/20 20:58 Dose: 200 mg Documented by: Meloxicam (Meloxicam 7.5 Mg Tab) 15 mg PO QDAY [facility] Last Admin: 10/22/20 09:37 Dose: 15 mg Documented by: Quetiapine Fumarate (Quetiapine 200 Mg Tab) 200 mg PO QHS [facility] Last Admin: 10/22/20 21:06 Dose: 200 mg Documented by: Sertraline HCl (Sertraline 50 Mg Tab) 75 mg PO DAILY [facility] Last Admin: 10/22/20 09:44 Dose: 75 mg Documented by: Results - Results Labs/Vitals: Laboratory Last Values WBC 5.1 K/mm3 (4.5-11.0) 10/20/20 14:46 RBC 4.43 M/mm3 (3.65-5.03) 10/20/20 14:46 Hgb 12.9 gm/dl (10.1-14.3) 10/20/20 14:46 Hct 39.5 % (30.3-42.9) 10/20/20 14:46 MCV 89 fl (79-97) 10/20/20 14:46 MCH 29 pg (28-32) 10/20/20 14:46 MCHC 33 % (30-34) 10/20/20 14:46 RDW 14.9 % (13.2-15.2) 10/20/20 14:46 Plt Count 249 K/mm3 (140-440) 10/20/20 14:46 Lymph % (Auto) 29.7 % (13.4-35.0) 10/20/20 14:46 [place] % (Auto) 10.2 % (0.0-7.3) H 10/20/20 14:46 Eos % (Auto) 2.0 % (0.0-4.3) 10/20/20 14:46 Baso % (Auto) 0.6 % (0.0-1.8) 10/20/20 14:46 Lymph # (Auto) 1.5 K/mm3 (1.2-5.4) 10/20/20 14:46 [place] # (Auto) 0.5 K/mm3 (0.0-0.8) 10/20/20 14:46 Eos # (Auto) 0.1 K/mm3 (0.0-0.4) 10/20/20 14:46 Baso # (Auto) 0.0 K/mm3 (0.0-0.1) 10/20/20 14:46 Seg Neutrophils % 57.5 % (40.0-70.0) 10/20/20 14:46 Seg Neutrophils # 2.9 K/mm3 (1.8-7.7) 10/20/20 14:46 Sodium 141 mmol/L (137-145) 10/20/20 14:46 Potassium 4.8 mmol/L (3.6-5.0) 10/20/20 14:46 Chloride 103.0 mmol/L (98-107) 10/20/20 14:46 Carbon Dioxide 30 mmol/L (22-30) 10/20/20 14:46 Anion Gap 13 mmol/L 10/20/20 14:46 BUN 10 mg/dL (7-17) 10/20/20 14:46 Creatinine 0.7 mg/dL (0.6-1.2) 10/20/20 14:46 Estimated GFR > 60 ml/min 10/20/20 14:46 BUN/Creatinine Ratio 14 % 10/20/20 14:46 Glucose 110 mg/dL (65-100) H 10/20/20 14:46 POC Glucose 82 mg/dL (70-105) 10/19/20 22:37 Hemoglobin A1c 5.0 % (4-6) 10/20/20 14:46 Calcium 9.7 mg/dL (8.4-10.2) 10/20/20 14:46 Total Bilirubin < 0.20 mg/dL (0.1-1.2) 10/20/20 14:46 AST 15 units/L (5-40) 10/20/20 14:46 ALT 11 units/L (7-56) 10/20/20 14:46 Alkaline Phosphatase 96 units/L (35-129) 10/20/20 14:46 Total Protein 6.7 g/dL (6.3-8.2) 10/20/20 14:46 Albumin 3.4 g/dL (3.9-5) L 10/20/20 14:46 Albumin/Globulin Ratio 1.0 % 10/20/20 14:46 Triglycerides 194 mg/dL (2-149) H 10/20/20 14:46 Cholesterol 201 mg/dL (50-199) H 10/20/20 14:46 LDL Cholesterol Direct 120 mg/dL (50-130) 10/20/20 14:46 HDL Cholesterol 51 mg/dL (40-59) 10/20/20 14:46 Cholesterol/HDL Ratio 3.94 % 10/20/20 14:46 TSH 4.050 mlU/mL (0.270-4.200) 10/20/20 14:46 Valproic Acid 12.8 ug/mL (50-100) L 10/21/20 08:39 Last Vital Signs Temp 97.4 F L 10/22/20 22:00 Pulse 83 10/22/20 22:00 Resp 18 10/23/20 06:22 BP 111/53 10/22/20 22:00 Pulse Ox 96 10/22/20 22:00
[2020-10-23] MEDS: AMOXICILLIN/K CLAV 875/125MG TAB PO SCH ×2 (10:03→21:00)
[2020-10-23] MEDS: GABAPENTIN 100 MG CAP PO SCH ×3 (10:03→21:00)
[2020-10-23] MEDS: DIVALPROEX ER 500 MG TAB PO SCH ×3 (10:04→21:00)
[2020-10-23] MEDS: SERTRALINE 50 MG TAB PO SCH (10:04)
[2020-10-23] MEDS: MELOXICAM 7.5 MG TAB PO SCH (10:04)
[2020-10-23] MEDS: CYCLOBENZAPRINE 10 MG TAB PO SCH ×3 (10:05→21:00)
--- NOTE | 2020-10-23 11:01 | Progress Note ---
Subjective Date of service: 10/23/20 Principal diagnosis: MDD Subjective Comment: Patient Name: YOGESH JOSEPH Date of : 1955 Patient Status: Inpatient Attending Provider: CAROLINE WHEAT Date: 10/22/20 08:49 Initialization Date: 10/22/20 08:49 Subjective Date of service: 10/22/20 Principal diagnosis: MDD Subjective Comment: I saw the patient this morning. She shows up superior nowadays than recently. She said " i am feeling great since i came here and begin to testing my life. i was taking care of all my families for long time but i feel not taking care of myself. She keep crying when she begin talking about her grand daughter. She said "my terrific girl had a sex when she was 12 years old; i think this issues pushed my mind to end up my life. yes i was pushed myself at that point to harmed myself". She reported multiple time suicidal attempt in the past. However, she denies current suicidal thought and hallucinations of any kind. Reason for continued inpatient treatment: The patient had a suicidal attempt per OD, and endorses passive suicidal thoughts. The patient is being weaned off of long-term use of Valium, this can only be done safely inpatient. Valium is also the patient's means of ending her life. Will continue to treat and monitor this patient to ensue her safety upon discharge. REVIEW OF SYSTEMS Constitutional: Negative for weight loss ENT: Negative for stridor Respiratory: Negative for cough or hemoptysis All other systems reviewed and are negative MENTAL STATUS EXAMINATION General Appearance and Behavior: Age appropriate, good hygiene, wearing appropriate clothes, fair eye contact, withdrawn, cooperative Cooperation: Participating/engaged Psychomotor Behavior: Psychomotor normal Mood: depressed Affect and affective range: Congruent with stated mood, tearful, restricted Thought Process: goal directed Thought Content: hopelessness Speech: Normal rate, volume and rhythm Suicidal Ideation: Yes Homicidal Ideation: Denies Hallucinations: Denies Delusions: None elicited Impulse Control: Impaired Insight and Judgment: Limited insight and judgment Memory: Limited Attention: Normal Orientation: Alert, oriented Assessment and Plan (1) Bipolar Disorder Treatment Plan Patient admitted for inpatient psychiatric evaluation, medication adjustment and close monitoring The patient's behavior, mood, sleep and appetite will be closely monitored. Patient enrolled in individual and group therapeutic sessions and encouraged to attend. Patient provided with a safe and structured environment. Patient's physical health needs will be addressed by the Hospitalist. Hospitalist Consulted Labs including CBC, CMP, Lipid profile and Hemoglobin A1C levels ordered for baseline reference Valproic Level level 12.8 Social Assessment will be completed and the Commercial Account Executive will work with patient and family to ensure a suitable and safe disposition Medication adjustment will be made as clinically indicated Decreased Valium 2mg po qhs Increase Depakote DR 500mg po TID Increased Zoloft 75mg (1.5 tab) qd Usual Wellness Latter Day/Preservation: - Start Trazodone 50 mg po QHS & 50 mg po QHS PRN between 10 PM & 2 AM for insomnia - Start Melatonin 5 mg po QHS to promote circadian rhythm - Start [place]-3 for brain health, reduce impulsivity, and as adjunctive treatment for mood disorder, continue upon discharge given overall benefits. - Start B1 prophylaxis with 200 mg po for 5 days The patient agreed on the treatment plan, understood the risk, benefit, alternative treatment, potential consequence of no treatment, and gave informed consent. Estimated days: 5 Post hospital care: primary care provider, psychiatric provider Medications and Allergies Allergies Allergy/AdvReac Type Severity Reaction Status Date / Time No Known Allergies Allergy Verified 10/20/20 00:56 Home Medications Medication Instructions Recorded Confirmed Last Taken Type Acetaminophen [Tylenol] 2 tab PO Q6HR 10/20/20 10/20/20 Unknown History Amoxicillin/Potassium Clav 875 mg PO Q12HR 10/20/20 10/20/20 Unknown History [Augmentin 875-125 Tablet] Cyclobenzaprine [Flexeril 10 MG 10 mg PO TID 10/20/20 10/20/20 Unknown History TAB] Divalproex ER [Depakote ER] 500 mg PO BID 10/20/20 10/20/20 Unknown History Gabapentin 400 mg PO TID 10/20/20 10/20/20 Unknown History Meloxicam [Mobic] 15 mg PO DAILY 10/20/20 10/20/20 Unknown History Omeprazole 40 mg PO DAILY 10/20/20 10/20/20 Unknown History QUEtiapine [SEROquel] 200 mg PO QHS 10/20/20 10/20/20 Unknown History Sertraline [Zoloft] 50 mg PO DAILY 10/20/20 10/20/20 Unknown History Simvastatin 40 mg PO HS 10/20/20 10/20/20 Unknown History Venlafaxine HCl [Venlafaxine HCl 150 mg PO DAILY 10/20/20 10/20/20 Unknown History ER] diazePAM TAB [Valium] 5 mg PO BID 10/20/20 10/20/20 Unknown History traMADoL [Ultram 50 MG tab] 50 mg PO PRN PRN 10/20/20 10/20/20 Unknown History Active Meds: Active Medications Acetaminophen (Acetaminophen 325 Mg Tab) 650 mg PO Q6HR [facility] Last Admin: 10/23/20 06:22 Dose: 650 mg Documented by: Amoxicillin/Clavulanate Potassium (Amoxicillin/K Clav 875/125mg Tab) 1 each PO Q12HR [facility]; Protocol Stop: 10/27/20 10:01 Last Admin: 10/23/20 10:03 Dose: 1 each Documented by: Cyclobenzaprine HCl (Cyclobenzaprine 10 Mg Tab) 10 mg PO TID [facility] Last Admin: 10/23/20 10:05 Dose: 10 mg Documented by: Diazepam (Diazepam 2 Mg Tab) 1 mg PO QHS [facility] Divalproex Sodium (Divalproex Er 500 Mg Tab) 500 mg PO TID [facility] Last Admin: 10/23/20 10:04 Dose: 500 mg Documented by: Gabapentin (Gabapentin 100 Mg Cap) 200 mg PO TID [facility] Last Admin: 10/23/20 10:03 Dose: 200 mg Documented by: Meloxicam (Meloxicam 7.5 Mg Tab) 15 mg PO QDAY [facility] Last Admin: 10/23/20 10:04 Dose: 15 mg Documented by: Quetiapine Fumarate (Quetiapine 200 Mg Tab) 200 mg PO QHS [facility] Last Admin: 10/22/20 21:06 Dose: 200 mg Documented by: Sertraline HCl (Sertraline 50 Mg Tab) 75 mg PO DAILY [facility] Last Admin: 10/23/20 10:04 Dose: 75 mg Documented by: Results - Results Labs/Vitals: Laboratory Last Values WBC 5.1 K/mm3 (4.5-11.0) 10/20/20 14:46 RBC 4.43 M/mm3 (3.65-5.03) 10/20/20 14:46 Hgb 12.9 gm/dl (10.1-14.3) 10/20/20 14:46 Hct 39.5 % (30.3-42.9) 10/20/20 14:46 MCV 89 fl (79-97) 10/20/20 14:46 MCH 29 pg (28-32) 10/20/20 14:46 MCHC 33 % (30-34) 10/20/20 14:46 RDW 14.9 % (13.2-15.2) 10/20/20 14:46 Plt Count 249 K/mm3 (140-440) 10/20/20 14:46 Lymph % (Auto) 29.7 % (13.4-35.0) 10/20/20 14:46 [place] % (Auto) 10.2 % (0.0-7.3) H 10/20/20 14:46 Eos % (Auto) 2.0 % (0.0-4.3) 10/20/20 14:46 Baso % (Auto) 0.6 % (0.0-1.8) 10/20/20 14:46 Lymph # (Auto) 1.5 K/mm3 (1.2-5.4) 10/20/20 14:46 [place] # (Auto) 0.5 K/mm3 (0.0-0.8) 10/20/20 14:46 Eos # (Auto) 0.1 K/mm3 (0.0-0.4) 10/20/20 14:46 Baso # (Auto) 0.0 K/mm3 (0.0-0.1) 10/20/20 14:46 Seg Neutrophils % 57.5 % (40.0-70.0) 10/20/20 14:46 Seg Neutrophils # 2.9 K/mm3 (1.8-7.7) 10/20/20 14:46 Sodium 141 mmol/L (137-145) 10/20/20 14:46 Potassium 4.8 mmol/L (3.6-5.0) 10/20/20 14:46 Chloride 103.0 mmol/L (98-107) 10/20/20 14:46 Carbon Dioxide 30 mmol/L (22-30) 10/20/20 14:46 Anion Gap 13 mmol/L 10/20/20 14:46 BUN 10 mg/dL (7-17) 10/20/20 14:46 Creatinine 0.7 mg/dL (0.6-1.2) 10/20/20 14:46 Estimated GFR > 60 ml/min 10/20/20 14:46 BUN/Creatinine Ratio 14 % 10/20/20 14:46 Glucose 110 mg/dL (65-100) H 10/20/20 14:46 POC Glucose 82 mg/dL (70-105) 10/19/20 22:37 Hemoglobin A1c 5.0 % (4-6) 10/20/20 14:46 Calcium 9.7 mg/dL (8.4-10.2) 10/20/20 14:46 Total Bilirubin < 0.20 mg/dL (0.1-1.2) 10/20/20 14:46 AST 15 units/L (5-40) 10/20/20 14:46 ALT 11 units/L (7-56) 10/20/20 14:46 Alkaline Phosphatase 96 units/L (35-129) 10/20/20 14:46 Total Protein 6.7 g/dL (6.3-8.2) 10/20/20 14:46 Albumin 3.4 g/dL (3.9-5) L 10/20/20 14:46 Albumin/Globulin Ratio 1.0 % 10/20/20 14:46 Triglycerides 194 mg/dL (2-149) H 10/20/20 14:46 Cholesterol 201 mg/dL (50-199) H 10/20/20 14:46 LDL Cholesterol Direct 120 mg/dL (50-130) 10/20/20 14:46 HDL Cholesterol 51 mg/dL (40-59) 10/20/20 14:46 Cholesterol/HDL Ratio 3.94 % 10/20/20 14:46 TSH 4.050 mlU/mL (0.270-4.200) 10/20/20 14:46 Valproic Acid 12.8 ug/mL (50-100) L 10/21/20 08:39 Last Vital Signs Temp 98.2 F 10/23/20 08:51 Pulse 104 H 10/23/20 08:51 Resp 16 10/23/20 08:51 BP 108/60 10/23/20 08:51 Pulse Ox 94 10/23/20 08:51
[2020-10-23] MEDS: LIP THERAPY VASELINE TP PRN ×2 (15:31→21:07)
[2020-10-23] MEDS: QUEtiapine 200 MG TAB PO SCH (21:00)
[2020-10-23] MEDS: PANTOPRAZOLE 40 MG TAB PO SCH (21:07)
[2020-10-23] MEDS: PRAVASTATIN 80 MG TAB PO SCH (21:32)
[2020-10-23] MEDS ORDERED: diazePAM 2 MG TAB PO SCH (22:00)
[2020-10-24] MEDS: ACETAMINOPHEN 325 MG TAB PO PRN ×2 (04:35→18:07)
--- NOTE | 2020-10-24 07:49 | Progress Note ---
Subjective Date of service: 10/24/20 Principal diagnosis: MDD Subjective Comment: Per Nurse Note: Patient rested quietly throughout the night. She woke at 0430 for Tylenol 650 mg for "hurting all over". She then returned to sleep. Will continue to monitor patient for safety. The patient was seen today, she is sitting on side of her bed. The patient is a little irritated. She says she's been here and her sink is not working, she has to wash her hands in her shower. She said maintenance had been out but could not fix it. I advised the patient I would speak to staff about getting her moved to another room. She denies hallucinations or SI/HI. The patient says "no, I'm not having any of that, just feel like people have been taking advantage of me my entire life." Reason for continued inpatient treatment: The patient had a suicidal attempt per OD, but no longer endorses suicidal thoughts. The patient is being weaned off of long-term use of Valium, this can only be done safely inpatient. Valium is also the patient's means of ending her life. Will continue to treat and monitor this patient to ensue her safety upon discharge. SW to speak with family. REVIEW OF SYSTEMS Constitutional: Negative for weight loss ENT: Negative for stridor Respiratory: Negative for cough or hemoptysis All other systems reviewed and are negative MENTAL STATUS EXAMINATION General Appearance and Behavior: Age appropriate, good hygiene, wearing appropriate clothes, fair eye contact, withdrawn, cooperative Cooperation: Participating/engaged Psychomotor Behavior: Psychomotor normal Mood: Okay Affect and affective range: Congruent with stated mood Thought Process: goal directed Thought Content: hopelessness Speech: Normal rate, volume and rhythm Suicidal Ideation: Yes Homicidal Ideation: Denies Hallucinations: Denies Delusions: None elicited Impulse Control: Impaired Insight and Judgment: Limited insight and judgment Memory: Limited Attention: Normal Orientation: Alert, oriented Assessment and Plan (1) Bipolar Disorder Treatment Plan Patient admitted for inpatient psychiatric evaluation, medication adjustment and close monitoring The patient's behavior, mood, sleep and appetite will be closely monitored. Patient enrolled in individual and group therapeutic sessions and encouraged to attend. Patient provided with a safe and structured environment. Patient's physical health needs will be addressed by the Hospitalist. Hospitalist Consulted Labs including CBC, CMP, Lipid profile and Hemoglobin A1C levels ordered for baseline reference Valproic Level level 12.8 Social Assessment will be completed and the Appeals Referee will work with patient and family to ensure a suitable and safe disposition Medication adjustment will be made as clinically indicated D/c Valium Continue Depakote DR 500mg po TID Continue Zoloft 75mg (1.5 tab) qd Usual Wellness Scientologist/Preservation: - Start Trazodone 50 mg po QHS & 50 mg po QHS PRN between 10 PM & 2 AM for insomnia - Start Melatonin 5 mg po QHS to promote circadian rhythm - Start [place]-3 for brain health, reduce impulsivity, and as adjunctive treatment for mood disorder, continue upon discharge given overall benefits. - Start B1 prophylaxis with 200 mg po for 5 days The patient agreed on the treatment plan, understood the risk, benefit, alternative treatment, potential consequence of no treatment, and gave informed consent. Estimated days: 5 Post hospital care: primary care provider, psychiatric provider Medications and Allergies Allergies Allergy/AdvReac Type Severity Reaction Status Date / Time No Known Allergies Allergy Verified 10/20/20 00:56 Home Medications Medication Instructions Recorded Confirmed Last Taken Type Acetaminophen [Tylenol] 2 tab PO Q6HR 10/20/20 10/20/20 Unknown History Amoxicillin/Potassium Clav 875 mg PO Q12HR 10/20/20 10/20/20 Unknown History [Augmentin 875-125 Tablet] Cyclobenzaprine [Flexeril 10 MG 10 mg PO TID 10/20/20 10/20/20 Unknown History TAB] Divalproex ER [Depakote ER] 500 mg PO BID 10/20/20 10/20/20 Unknown History Gabapentin 400 mg PO TID 10/20/20 10/20/20 Unknown History Meloxicam [Mobic] 15 mg PO DAILY 10/20/20 10/20/20 Unknown History Omeprazole 40 mg PO DAILY 10/20/20 10/20/20 Unknown History QUEtiapine [SEROquel] 200 mg PO QHS 10/20/20 10/20/20 Unknown History Sertraline [Zoloft] 50 mg PO DAILY 10/20/20 10/20/20 Unknown History Simvastatin 40 mg PO HS 10/20/20 10/20/20 Unknown History Venlafaxine HCl [Venlafaxine HCl 150 mg PO DAILY 10/20/20 10/20/20 Unknown History ER] diazePAM TAB [Valium] 5 mg PO BID 10/20/20 10/20/20 Unknown History traMADoL [Ultram 50 MG tab] 50 mg PO PRN PRN 10/20/20 10/20/20 Unknown History Active Meds: Active Medications Acetaminophen (Acetaminophen 325 Mg Tab) 650 mg PO Q6H PRN PRN Reason: Pain, Mild (1-3) Last Admin: 10/24/20 04:35 Dose: 650 mg Documented by: Amoxicillin/Clavulanate Potassium (Amoxicillin/K Clav 875/125mg Tab) 1 each PO Q12HR [facility]; Protocol Stop: 10/27/20 10:01 Last Admin: 10/23/20 21:00 Dose: 1 each Documented by: Cyclobenzaprine HCl (Cyclobenzaprine 10 Mg Tab) 10 mg PO TID [facility] Last Admin: 10/23/20 21:00 Dose: 10 mg Documented by: Diazepam (Diazepam 2 Mg Tab) 1 mg PO QHS [facility] Last Admin: 10/23/20 21:01 Dose: 1 mg Documented by: Divalproex Sodium (Divalproex Er 500 Mg Tab) 500 mg PO TID [facility] Last Admin: 10/23/20 21:00 Dose: 500 mg Documented by: Gabapentin (Gabapentin 100 Mg Cap) 200 mg PO TID [facility] Last Admin: 10/23/20 21:00 Dose: 200 mg Documented by: Hydrophilic Ointment (Lip Therapy Vaseline) 1 applic TP DIRECT PRN PRN Reason: Dry Lips Last Admin: 10/23/20 21:07 Dose: 1 applic Documented by: Meloxicam (Meloxicam 7.5 Mg Tab) 15 mg PO QDAY [facility] Last Admin: 10/23/20 10:04 Dose: 15 mg Documented by: Pantoprazole Sodium (Pantoprazole 40 Mg Tab) 40 mg PO QDAC [facility] Last Admin: 10/23/20 21:07 Dose: 40 mg Documented by: Pravastatin Sodium (Pravastatin 80 Mg Tab) 80 mg PO QHS [facility] Last Admin: 10/23/20 21:32 Dose: 80 mg Documented by: Quetiapine Fumarate (Quetiapine 200 Mg Tab) 200 mg PO QHS [facility] Last Admin: 10/23/20 21:00 Dose: 200 mg Documented by: Sertraline HCl (Sertraline 50 Mg Tab) 75 mg PO DAILY [facility] Last Admin: 10/23/20 10:04 Dose: 75 mg Documented by: Results - Results Labs/Vitals: Laboratory Last Values WBC 5.1 K/mm3 (4.5-11.0) 10/20/20 14:46 RBC 4.43 M/mm3 (3.65-5.03) 10/20/20 14:46 Hgb 12.9 gm/dl (10.1-14.3) 10/20/20 14:46 Hct 39.5 % (30.3-42.9) 10/20/20 14:46 MCV 89 fl (79-97) 10/20/20 14:46 MCH 29 pg (28-32) 10/20/20 14:46 MCHC 33 % (30-34) 10/20/20 14:46 RDW 14.9 % (13.2-15.2) 10/20/20 14:46 Plt Count 249 K/mm3 (140-440) 10/20/20 14:46 Lymph % (Auto) 29.7 % (13.4-35.0) 10/20/20 14:46 [place] % (Auto) 10.2 % (0.0-7.3) H 10/20/20 14:46 Eos % (Auto) 2.0 % (0.0-4.3) 10/20/20 14:46 Baso % (Auto) 0.6 % (0.0-1.8) 10/20/20 14:46 Lymph # (Auto) 1.5 K/mm3 (1.2-5.4) 10/20/20 14:46 [place] # (Auto) 0.5 K/mm3 (0.0-0.8) 10/20/20 14:46 Eos # (Auto) 0.1 K/mm3 (0.0-0.4) 10/20/20 14:46 Baso # (Auto) 0.0 K/mm3 (0.0-0.1) 10/20/20 14:46 Seg Neutrophils % 57.5 % (40.0-70.0) 10/20/20 14:46 Seg Neutrophils # 2.9 K/mm3 (1.8-7.7) 10/20/20 14:46 Sodium 141 mmol/L (137-145) 10/20/20 14:46 Potassium 4.8 mmol/L (3.6-5.0) 10/20/20 14:46 Chloride 103.0 mmol/L (98-107) 10/20/20 14:46 Carbon Dioxide 30 mmol/L (22-30) 10/20/20 14:46 Anion Gap 13 mmol/L 10/20/20 14:46 BUN 10 mg/dL (7-17) 10/20/20 14:46 Creatinine 0.7 mg/dL (0.6-1.2) 10/20/20 14:46 Estimated GFR > 60 ml/min 10/20/20 14:46 BUN/Creatinine Ratio 14 % 10/20/20 14:46 Glucose 110 mg/dL (65-100) H 10/20/20 14:46 POC Glucose 82 mg/dL (70-105) 10/19/20 22:37 Hemoglobin A1c 5.0 % (4-6) 10/20/20 14:46 Calcium 9.7 mg/dL (8.4-10.2) 10/20/20 14:46 Total Bilirubin < 0.20 mg/dL (0.1-1.2) 10/20/20 14:46 AST 15 units/L (5-40) 10/20/20 14:46 ALT 11 units/L (7-56) 10/20/20 14:46 Alkaline Phosphatase 96 units/L (35-129) 10/20/20 14:46 Total Protein 6.7 g/dL (6.3-8.2) 10/20/20 14:46 Albumin 3.4 g/dL (3.9-5) L 10/20/20 14:46 Albumin/Globulin Ratio 1.0 % 10/20/20 14:46 Triglycerides 194 mg/dL (2-149) H 10/20/20 14:46 Cholesterol 201 mg/dL (50-199) H 10/20/20 14:46 LDL Cholesterol Direct 120 mg/dL (50-130) 10/20/20 14:46 HDL Cholesterol 51 mg/dL (40-59) 10/20/20 14:46 Cholesterol/HDL Ratio 3.94 % 10/20/20 14:46 TSH 4.050 mlU/mL (0.270-4.200) 10/20/20 14:46 Valproic Acid 12.8 ug/mL (50-100) L 10/21/20 08:39 Last Vital Signs Temp 98.2 F 10/23/20 21:00 Pulse 83 10/23/20 21:00 Resp 16 10/24/20 04:35 BP 107/68 10/23/20 21:00 Pulse Ox 96 10/23/20 21:00
[2020-10-24] MEDS: SERTRALINE 50 MG TAB PO SCH (10:36)
[2020-10-24] MEDS: AMOXICILLIN/K CLAV 875/125MG TAB PO SCH ×2 (10:36→21:02)
[2020-10-24] MEDS: GABAPENTIN 100 MG CAP PO SCH ×3 (10:37→20:42)
[2020-10-24] MEDS: DIVALPROEX ER 500 MG TAB PO SCH ×3 (10:37→20:42)
[2020-10-24] MEDS: CYCLOBENZAPRINE 10 MG TAB PO SCH ×3 (10:37→20:42)
[2020-10-24] MEDS: MELOXICAM 7.5 MG TAB PO SCH (10:38)
[2020-10-24] MEDS: LIP THERAPY VASELINE TP PRN (10:42)
[2020-10-24] MEDS: PANTOPRAZOLE 40 MG TAB PO SCH (12:30)
[2020-10-24] MEDS: PRAVASTATIN 80 MG TAB PO SCH (21:02)
[2020-10-24] MEDS: QUEtiapine 200 MG TAB PO SCH (21:03)
[2020-10-25] MEDS: ACETAMINOPHEN 325 MG TAB PO PRN ×3 (00:18→21:30)
--- NOTE | 2020-10-25 07:40 | Progress Note ---
Subjective Date of service: 10/25/20 Principal diagnosis: MDD Subjective Comment: Per Psych Nurse: 181 Pt said she did not sleep well last night, she was upset because there was no water coming out of her sink for her to wash her hands. Pt. moved to another room, she calm, appropriate, pleasant, cooperative with staff and compliant with meds. Denies HI/SI. Will continue to monitor. Psych Progress HPI In my interview with the patient this morning, the patient reports mood as not good, patient reported she feels depressed, though she is not suicidal that the suicidal thoughts is now passive, patient reports she did not sleep well last night and that could be an reason why she is not feeling good so far today. Patient seen closing her eyes, unable to keep a good eye contact while talking to this provider. 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 Reason for continuing inpatient treatment: Titrating patient off Valium, patient also experiencing hallucination describing people in her head giving her different types of personality disorder. Patient medication to be adjusted today. We will repeat Depakote levels for recheck, previous levels were very low Review of Symptoms: Constitutional: Negative for weight loss ENT: Negative for stridor Respiratory: Negative for cough or hemoptysis All other systems reviewed and are negative MENTAL STATUS EXAMINATION General Appearance and Behavior: Age appropriate, good hygiene, wearing appropriate clothes,, good eye contact Cooperation: Participating/engaged, but Guarded Psychomotor Behavior: Psychomotor normal Mood: depressed Affect and affective range: Flat Thought Process: illogical Thought Content: Hallucination Speech: Normal rate, volume and rythm Intellectual Functioning: Average Suicidal Ideation: Passive SI Homicidal Ideation: Denies HI Impulse Control: Impaired Insight and Judgment: Limited insight and judgment Memory: Normal Attention: Normal Orientation: Alert, oriented Assessment and Plan (1) Bipolar Disorder Treatment Plan Reduce Valium by half Check Depakote level Continue current medications Patient admitted for inpatient psychiatric evaluation, medication adjustment and close monitoring The patient's behavior, mood, sleep and appetite will be closely monitored. Patient enrolled in individual and group therapeutic sessions and encouraged to attend. Patient provided with a safe and structured environment. Patient's physical health needs will be addressed by the Hospitalist. Hospitalist Consulted Labs including CBC, CMP, Lipid profile and Hemoglobin A1C levels ordered for baseline reference Social Assessment will be completed and the Set Up Mechanic will work with patient and family to ensure a suitable and safe disposition Medication adjustment will be made as clinically indicated Usual Wellness [employer]/Preservation: - Start Trazodone 50 mg po QHS & 50 mg po QHS PRN between 10 PM & 2 AM for insomnia - Start Melatonin 5 mg po QHS to promote circadian rhythm - Start [place]-3 for brain health, reduce impulsivity, and as adjunctive treatment for mood disorder, continue upon discharge given overall benefits. - Start B1 prophylaxis with 200 mg po for 5 days The patient agreed on the treatment plan, understood the risk, benefit, alternative treatment, potential consequence of no treatment, and gave informed consent. Initial Certification Inpatient psych services: I certify that the inpatient psychiatric services are required for treatment that could reasonably be expected to improve the patient's condition. Estimated days: 7 Post hospital care: primary care provider, psychiatric provider Medications and Allergies Allergies Allergy/AdvReac Type Severity Reaction Status Date / Time No Known Allergies Allergy Verified 10/20/20 00:56 Home Medications Medication Instructions Recorded Confirmed Last Taken Type Acetaminophen [Tylenol] 2 tab PO Q6HR 10/20/20 10/20/20 Unknown History Amoxicillin/Potassium Clav 875 mg PO Q12HR 10/20/20 10/20/20 Unknown History [Augmentin 875-125 Tablet] Cyclobenzaprine [Flexeril 10 MG 10 mg PO TID 10/20/20 10/20/20 Unknown History TAB] Divalproex ER [Depakote ER] 500 mg PO BID 10/20/20 10/20/20 Unknown History Gabapentin 400 mg PO TID 10/20/20 10/20/20 Unknown History Meloxicam [Mobic] 15 mg PO DAILY 10/20/20 10/20/20 Unknown History Omeprazole 40 mg PO DAILY 10/20/20 10/20/20 Unknown History QUEtiapine [SEROquel] 200 mg PO QHS 10/20/20 10/20/20 Unknown History Sertraline [Zoloft] 50 mg PO DAILY 10/20/20 10/20/20 Unknown History Simvastatin 40 mg PO HS 10/20/20 10/20/20 Unknown History Venlafaxine HCl [Venlafaxine HCl 150 mg PO DAILY 10/20/20 10/20/20 Unknown History ER] diazePAM TAB [Valium] 5 mg PO BID 10/20/20 10/20/20 Unknown History traMADoL [Ultram 50 MG tab] 50 mg PO PRN PRN 10/20/20 10/20/20 Unknown History Active Meds: Active Medications Acetaminophen (Acetaminophen 325 Mg Tab) 650 mg PO Q6H PRN PRN Reason: Pain, Mild (1-3) Last Admin: 10/25/20 00:18 Dose: 650 mg Documented by: Amoxicillin/Clavulanate Potassium (Amoxicillin/K Clav 875/125mg Tab) 1 each PO Q12HR [facility]; Protocol Stop: 10/27/20 10:01 Last Admin: 10/24/20 21:02 Dose: 1 each Documented by: Cyclobenzaprine HCl (Cyclobenzaprine 10 Mg Tab) 10 mg PO TID [facility] Last Admin: 10/24/20 20:42 Dose: 10 mg Documented by: Divalproex Sodium (Divalproex Er 500 Mg Tab) 500 mg PO TID [facility] Last Admin: 10/24/20 20:42 Dose: 500 mg Documented by: Gabapentin (Gabapentin 100 Mg Cap) 200 mg PO TID [facility] Last Admin: 10/24/20 20:42 Dose: 200 mg Documented by: Hydrophilic Ointment (Lip Therapy Vaseline) 1 applic TP DIRECT PRN PRN Reason: Dry Lips Last Admin: 10/24/20 10:42 Dose: 1 applic Documented by: Meloxicam (Meloxicam 7.5 Mg Tab) 15 mg PO QDAY [facility] Last Admin: 10/24/20 10:38 Dose: 15 mg Documented by: Pantoprazole Sodium (Pantoprazole 40 Mg Tab) 40 mg PO QDAC [facility] Last Admin: 10/24/20 12:30 Dose: 40 mg Documented by: Pravastatin Sodium (Pravastatin 80 Mg Tab) 80 mg PO QHS [facility] Last Admin: 10/24/20 21:02 Dose: 80 mg Documented by: Quetiapine Fumarate (Quetiapine 200 Mg Tab) 200 mg PO QHS [facility] Last Admin: 10/24/20 21:03 Dose: 200 mg Documented by: Sertraline HCl (Sertraline 50 Mg Tab) 75 mg PO DAILY [facility] Last Admin: 10/24/20 10:36 Dose: 75 mg Documented by: Results - Results Labs/Vitals: Laboratory Last Values WBC 5.1 K/mm3 (4.5-11.0) 10/20/20 14:46 RBC 4.43 M/mm3 (3.65-5.03) 10/20/20 14:46 Hgb 12.9 gm/dl (10.1-14.3) 10/20/20 14:46 Hct 39.5 % (30.3-42.9) 10/20/20 14:46 MCV 89 fl (79-97) 10/20/20 14:46 MCH 29 pg (28-32) 10/20/20 14:46 MCHC 33 % (30-34) 10/20/20 14:46 RDW 14.9 % (13.2-15.2) 10/20/20 14:46 Plt Count 249 K/mm3 (140-440) 10/20/20 14:46 Lymph % (Auto) 29.7 % (13.4-35.0) 10/20/20 14:46 [facility] % (Auto) 10.2 % (0.0-7.3) H 10/20/20 14:46 Eos % (Auto) 2.0 % (0.0-4.3) 10/20/20 14:46 Baso % (Auto) 0.6 % (0.0-1.8) 10/20/20 14:46 Lymph # (Auto) 1.5 K/mm3 (1.2-5.4) 10/20/20 14:46 [facility] # (Auto) 0.5 K/mm3 (0.0-0.8) 10/20/20 14:46 Eos # (Auto) 0.1 K/mm3 (0.0-0.4) 10/20/20 14:46 Baso # (Auto) 0.0 K/mm3 (0.0-0.1) 10/20/20 14:46 Seg Neutrophils % 57.5 % (40.0-70.0) 10/20/20 14:46 Seg Neutrophils # 2.9 K/mm3 (1.8-7.7) 10/20/20 14:46 Sodium 141 mmol/L (137-145) 10/20/20 14:46 Potassium 4.8 mmol/L (3.6-5.0) 10/20/20 14:46 Chloride 103.0 mmol/L (98-107) 10/20/20 14:46 Carbon Dioxide 30 mmol/L (22-30) 10/20/20 14:46 Anion Gap 13 mmol/L 10/20/20 14:46 BUN 10 mg/dL (7-17) 10/20/20 14:46 Creatinine 0.7 mg/dL (0.6-1.2) 10/20/20 14:46 Estimated GFR > 60 ml/min 10/20/20 14:46 BUN/Creatinine Ratio 14 % 10/20/20 14:46 Glucose 110 mg/dL (65-100) H 10/20/20 14:46 POC Glucose 82 mg/dL (70-105) 10/19/20 22:37 Hemoglobin A1c 5.0 % (4-6) 10/20/20 14:46 Calcium 9.7 mg/dL (8.4-10.2) 10/20/20 14:46 Total Bilirubin < 0.20 mg/dL (0.1-1.2) 10/20/20 14:46 AST 15 units/L (5-40) 10/20/20 14:46 ALT 11 units/L (7-56) 10/20/20 14:46 Alkaline Phosphatase 96 units/L (35-129) 10/20/20 14:46 Total Protein 6.7 g/dL (6.3-8.2) 10/20/20 14:46 Albumin 3.4 g/dL (3.9-5) L 10/20/20 14:46 Albumin/Globulin Ratio 1.0 % 10/20/20 14:46 Triglycerides 194 mg/dL (2-149) H 10/20/20 14:46 Cholesterol 201 mg/dL (50-199) H 10/20/20 14:46 LDL Cholesterol Direct 120 mg/dL (50-130) 10/20/20 14:46 HDL Cholesterol 51 mg/dL (40-59) 10/20/20 14:46 Cholesterol/HDL Ratio 3.94 % 10/20/20 14:46 TSH 4.050 mlU/mL (0.270-4.200) 10/20/20 14:46 Valproic Acid 12.8 ug/mL (50-100) L 10/21/20 08:39 Last Vital Signs Temp 97.9 F 10/24/20 19:28 Pulse 79 10/24/20 19:28 Resp 16 10/24/20 19:28 BP 120/46 10/24/20 19:28 Pulse Ox 95 10/24/20 19:28
[2020-10-25] MEDS: DIVALPROEX ER 500 MG TAB PO SCH ×3 (10:45→21:30)
[2020-10-25] MEDS: SERTRALINE 50 MG TAB PO SCH (10:45)
[2020-10-25] MEDS: PANTOPRAZOLE 40 MG TAB PO SCH (10:46)
[2020-10-25] MEDS: CYCLOBENZAPRINE 10 MG TAB PO SCH ×3 (10:46→21:29)
[2020-10-25] MEDS: GABAPENTIN 100 MG CAP PO SCH ×3 (10:46→21:30)
[2020-10-25] MEDS: MELOXICAM 7.5 MG TAB PO SCH (10:47)
[2020-10-25] MEDS: AMOXICILLIN/K CLAV 875/125MG TAB PO SCH ×2 (10:47→21:30)
[2020-10-25] MEDS: LIP THERAPY VASELINE TP PRN (14:46)
[2020-10-25] MEDS: PRAVASTATIN 80 MG TAB PO SCH (21:30)
[2020-10-25] MEDS: QUEtiapine 200 MG TAB PO SCH (21:30)
--- NOTE | 2020-10-26 08:33 | Progress Note ---
Subjective Date of service: 10/26/20 Principal diagnosis: MDD Subjective Comment: Per Psych Nurse: pt was present for full duration of group and actively engaged. pt's interaction with peers was + aeb pt helped peers keep balloon(s) off the floor and the table by using her hands. pt smiled and socialized with peers as dhe engaged. pt asked for a cup of water during the game. pt enjoyed the music. pt was able to follow all directives. pt's engagement/participation was limited aeb pt ceased playing and exited group. when seed analysis laboratory assistant asked pt what was wrong, pt replied "my arthritis is messing up". pt sat quietly and observed peers as they continued group. Psych Progress HPI Patient seen activity room she is already coloring, patient reported having an excellent night, no nightmares no disturbances and states that her mood has been really good today, but she endorses missing her friend that was just discharged because she felt she met a friend for the first time she could actually relate with the incident with a similar experiences as she has had. She denies being depressed today denies SI HI auditory visual hallucinations. Reason for continuing inpatient treatment: Depakote at therapeutic levels, continue to observe for stability and pending discharge for Wednesday. Review of Symptoms: Constitutional: Negative for weight loss ENT: Negative for stridor Respiratory: Negative for cough or hemoptysis All other systems reviewed and are negative MENTAL STATUS EXAMINATION General Appearance and Behavior: Age appropriate, good hygiene, wearing appropriate clothes, good eye contact, cooperative polite with questioning. Cooperation: Participating/engaged Psychomotor Behavior: unremarkable and within normal limits Mood: Good Affect and affective range: congruent with mood Thought Process: Fluent/Logical, Thought Content: Within reality, Speech: Normal volume, Regular rate and rhythm, Intellectual Functioning: Average Suicidal Ideation: Denies SI Homicidal Ideation: Denies HI Impulse Control: Unimpaired Insight and Judgment: Normal insight and judgment, Memory: Normal, Attention: Normal, Orientation: Alert, oriented, Assessment and Plan (1) Bipolar Disorder Treatment Plan Continue current medications Patient admitted for inpatient psychiatric evaluation, medication adjustment and close monitoring The patient's behavior, mood, sleep and appetite will be closely monitored. Patient enrolled in individual and group therapeutic sessions and encouraged to attend. Patient provided with a safe and structured environment. Patient's physical health needs will be addressed by the Hospitalist. Hospitalist Consulted Labs including CBC, CMP, Lipid profile and Hemoglobin A1C levels ordered for baseline reference Social Assessment will be completed and the Concrete Float Maker will work with patient and family to ensure a suitable and safe disposition Medication adjustment will be made as clinically indicated Usual Wellness [employer]/Preservation: - Start Trazodone 50 mg po QHS & 50 mg po QHS PRN between 10 PM & 2 AM for insomnia - Start Melatonin 5 mg po QHS to promote circadian rhythm - Start [place]-3 for brain health, reduce impulsivity, and as adjunctive treatment for mood disorder, continue upon discharge given overall benefits. - Start B1 prophylaxis with 200 mg po for 5 days The patient agreed on the treatment plan, understood the risk, benefit, alternative treatment, potential consequence of no treatment, and gave informed consent. Initial Certification Inpatient psych services: I certify that the inpatient psychiatric services are required for treatment that could reasonably be expected to improve the patient's condition. Estimated days:2 Post hospital care: primary care provider, psychiatric provider Medications and Allergies Allergies Allergy/AdvReac Type Severity Reaction Status Date / Time No Known Allergies Allergy Verified 10/20/20 00:56 Home Medications Medication Instructions Recorded Confirmed Last Taken Type Acetaminophen [Tylenol] 2 tab PO Q6HR 10/20/20 10/20/20 Unknown History Amoxicillin/Potassium Clav 875 mg PO Q12HR 10/20/20 10/20/20 Unknown History [Augmentin 875-125 Tablet] Cyclobenzaprine [Flexeril 10 MG 10 mg PO TID 10/20/20 10/20/20 Unknown History TAB] Divalproex ER [Depakote ER] 500 mg PO BID 10/20/20 10/20/20 Unknown History Gabapentin 400 mg PO TID 10/20/20 10/20/20 Unknown History Meloxicam [Mobic] 15 mg PO DAILY 10/20/20 10/20/20 Unknown History Omeprazole 40 mg PO DAILY 10/20/20 10/20/20 Unknown History QUEtiapine [SEROquel] 200 mg PO QHS 10/20/20 10/20/20 Unknown History Sertraline [Zoloft] 50 mg PO DAILY 10/20/20 10/20/20 Unknown History Simvastatin 40 mg PO HS 10/20/20 10/20/20 Unknown History Venlafaxine HCl [Venlafaxine HCl 150 mg PO DAILY 10/20/20 10/20/20 Unknown History ER] diazePAM TAB [Valium] 5 mg PO BID 10/20/20 10/20/20 Unknown History traMADoL [Ultram 50 MG tab] 50 mg PO PRN PRN 10/20/20 10/20/20 Unknown History Active Meds: Active Medications Acetaminophen (Acetaminophen 325 Mg Tab) 650 mg PO Q6H PRN PRN Reason: Pain, Mild (1-3) Last Admin: 10/25/20 21:30 Dose: 650 mg Documented by: Amoxicillin/Clavulanate Potassium (Amoxicillin/K Clav 875/125mg Tab) 1 each PO Q12HR [facility]; Protocol Stop: 10/27/20 10:01 Last Admin: 10/25/20 21:30 Dose: 1 each Documented by: Cyclobenzaprine HCl (Cyclobenzaprine 10 Mg Tab) 10 mg PO TID [facility] Last Admin: 10/25/20 21:29 Dose: 10 mg Documented by: Divalproex Sodium (Divalproex Er 500 Mg Tab) 500 mg PO TID [facility] Last Admin: 10/25/20 21:30 Dose: 500 mg Documented by: Gabapentin (Gabapentin 100 Mg Cap) 200 mg PO TID [facility] Last Admin: 10/25/20 21:30 Dose: 200 mg Documented by: Hydrophilic Ointment (Lip Therapy Vaseline) 1 applic TP DIRECT PRN PRN Reason: Dry Lips Last Admin: 10/25/20 14:46 Dose: 1 applic Documented by: Meloxicam (Meloxicam 7.5 Mg Tab) 15 mg PO QDAY [facility] Last Admin: 10/25/20 10:47 Dose: 15 mg Documented by: Pantoprazole Sodium (Pantoprazole 40 Mg Tab) 40 mg PO QDAC [facility] Last Admin: 10/25/20 10:46 Dose: 40 mg Documented by: Pravastatin Sodium (Pravastatin 80 Mg Tab) 80 mg PO QHS [facility] Last Admin: 10/25/20 21:30 Dose: 80 mg Documented by: Quetiapine Fumarate (Quetiapine 200 Mg Tab) 200 mg PO QHS [facility] Last Admin: 10/25/20 21:30 Dose: 200 mg Documented by: Sertraline HCl (Sertraline 50 Mg Tab) 75 mg PO DAILY [facility] Last Admin: 10/25/20 10:45 Dose: 75 mg Documented by: Results - Results Labs/Vitals: Laboratory Last Values WBC 5.1 K/mm3 (4.5-11.0) 10/20/20 14:46 RBC 4.43 M/mm3 (3.65-5.03) 10/20/20 14:46 Hgb 12.9 gm/dl (10.1-14.3) 10/20/20 14:46 Hct 39.5 % (30.3-42.9) 10/20/20 14:46 MCV 89 fl (79-97) 10/20/20 14:46 MCH 29 pg (28-32) 10/20/20 14:46 MCHC 33 % (30-34) 10/20/20 14:46 RDW 14.9 % (13.2-15.2) 10/20/20 14:46 Plt Count 249 K/mm3 (140-440) 10/20/20 14:46 Lymph % (Auto) 29.7 % (13.4-35.0) 10/20/20 14:46 [place] % (Auto) 10.2 % (0.0-7.3) H 10/20/20 14:46 Eos % (Auto) 2.0 % (0.0-4.3) 10/20/20 14:46 Baso % (Auto) 0.6 % (0.0-1.8) 10/20/20 14:46 Lymph # (Auto) 1.5 K/mm3 (1.2-5.4) 10/20/20 14:46 [place] # (Auto) 0.5 K/mm3 (0.0-0.8) 10/20/20 14:46 Eos # (Auto) 0.1 K/mm3 (0.0-0.4) 10/20/20 14:46 Baso # (Auto) 0.0 K/mm3 (0.0-0.1) 10/20/20 14:46 Seg Neutrophils % 57.5 % (40.0-70.0) 10/20/20 14:46 Seg Neutrophils # 2.9 K/mm3 (1.8-7.7) 10/20/20 14:46 Sodium 141 mmol/L (137-145) 10/20/20 14:46 Potassium 4.8 mmol/L (3.6-5.0) 10/20/20 14:46 Chloride 103.0 mmol/L (98-107) 10/20/20 14:46 Carbon Dioxide 30 mmol/L (22-30) 10/20/20 14:46 Anion Gap 13 mmol/L 10/20/20 14:46 BUN 10 mg/dL (7-17) 10/20/20 14:46 Creatinine 0.7 mg/dL (0.6-1.2) 10/20/20 14:46 Estimated GFR > 60 ml/min 10/20/20 14:46 BUN/Creatinine Ratio 14 % 10/20/20 14:46 Glucose 110 mg/dL (65-100) H 10/20/20 14:46 POC Glucose 82 mg/dL (70-105) 10/19/20 22:37 Hemoglobin A1c 5.0 % (4-6) 10/20/20 14:46 Calcium 9.7 mg/dL (8.4-10.2) 10/20/20 14:46 Total Bilirubin < 0.20 mg/dL (0.1-1.2) 10/20/20 14:46 AST 15 units/L (5-40) 10/20/20 14:46 ALT 11 units/L (7-56) 10/20/20 14:46 Alkaline Phosphatase 96 units/L (35-129) 10/20/20 14:46 Total Protein 6.7 g/dL (6.3-8.2) 10/20/20 14:46 Albumin 3.4 g/dL (3.9-5) L 10/20/20 14:46 Albumin/Globulin Ratio 1.0 % 10/20/20 14:46 Triglycerides 194 mg/dL (2-149) H 10/20/20 14:46 Cholesterol 201 mg/dL (50-199) H 10/20/20 14:46 LDL Cholesterol Direct 120 mg/dL (50-130) 10/20/20 14:46 HDL Cholesterol 51 mg/dL (40-59) 10/20/20 14:46 Cholesterol/HDL Ratio 3.94 % 10/20/20 14:46 TSH 4.050 mlU/mL (0.270-4.200) 10/20/20 14:46 Valproic Acid 54.5 ug/mL (50-100) 10/25/20 14:10 Last Vital Signs Temp 98.5 F 10/25/20 22:00 Pulse 98 H 10/25/20 22:00 Resp 18 10/25/20 22:00 BP 101/55 10/25/20 22:00 Pulse Ox 98 10/25/20 22:00
[2020-10-26] MEDS: SERTRALINE 50 MG TAB PO SCH (09:18)
[2020-10-26] MEDS: MELOXICAM 7.5 MG TAB PO SCH (09:19)
[2020-10-26] MEDS: DIVALPROEX ER 500 MG TAB PO SCH ×3 (09:19→20:41)
[2020-10-26] MEDS: GABAPENTIN 100 MG CAP PO SCH ×3 (09:19→20:40)
[2020-10-26] MEDS: PANTOPRAZOLE 40 MG TAB PO SCH (09:19)
[2020-10-26] MEDS: CYCLOBENZAPRINE 10 MG TAB PO SCH ×3 (09:20→20:40)
[2020-10-26] MEDS: AMOXICILLIN/K CLAV 875/125MG TAB PO SCH ×2 (09:20→21:16)
[2020-10-26] MEDS: ACETAMINOPHEN 325 MG TAB PO PRN (10:00)
[2020-10-26] MEDS: LIP THERAPY VASELINE TP PRN (10:00)
--- NOTE | 2020-10-26 12:06 | Progress Note ---
Assessment and Plan - Patient Problems (1) HLD (hyperlipidemia) Current Visit: Yes Status: Acute Qualifiers: Hyperlipidemia type: mixed hyperlipidemia Qualified Code(s): E78.2 - Mixed hyperlipidemia Plan to address problem: Low-cholesterol diet, statin therapy, supportive care (2) GERD (gastroesophageal reflux disease) Current Visit: Yes Status: Acute Qualifiers: Esophagitis presence: without esophagitis Qualified Code(s): K21.9 - Gastro-esophageal reflux disease without esophagitis Plan to address problem: PPI therapy, bland diet, supportive care. (3) Depression Current Visit: Yes Status: Acute Plan to address problem: Continue medical management. History Interval history: 65 YO Female with Obesity, Depression, VANDANA, GERD, HLD admitted to [facility] for Psychiatric Stabilization. Pt seen and evaluated in her room. No reported nursing events. No reported nursing events. Pt resting comfortably. Hospitalist Physical - Constitutional Vitals: Temp Pulse Resp BP Pulse Ox 98.5 F 98 H 18 101/55 98 10/25/20 22:00 10/25/20 22:00 10/26/20 10:00 10/25/20 22:00 10/25/20 22:00 General appearance: Present: no acute distress, well-nourished, obese - EENT Eyes: Present: PERRL ENT: hearing intact - Neck Neck: Present: supple - Respiratory Respiratory: bilateral: CTA - Cardiovascular Rhythm: regular Heart Sounds: Present: S1 & S2 - Extremities Extremities: no ischemia Peripheral Pulses: within normal limits - Abdominal General gastrointestinal: soft, non-tender, non-distended - Integumentary Integumentary: Present: clear, dry - Psychiatric Psychiatric: cooperative - Neurologic Neurologic: CNII-XII intact Results - Labs CBC & Chem 7: 10/20/20 14:46 10/20/20 14:46 Labs: Laboratory Last Values WBC 5.1 K/mm3 (4.5-11.0) 10/20/20 14:46 RBC 4.43 M/mm3 (3.65-5.03) 10/20/20 14:46 Hgb 12.9 gm/dl (10.1-14.3) 10/20/20 14:46 Hct 39.5 % (30.3-42.9) 10/20/20 14:46 MCV 89 fl (79-97) 10/20/20 14:46 MCH 29 pg (28-32) 10/20/20 14:46 MCHC 33 % (30-34) 10/20/20 14:46 RDW 14.9 % (13.2-15.2) 10/20/20 14:46 Plt Count 249 K/mm3 (140-440) 10/20/20 14:46 Lymph % (Auto) 29.7 % (13.4-35.0) 10/20/20 14:46 [place] % (Auto) 10.2 % (0.0-7.3) H 10/20/20 14:46 Eos % (Auto) 2.0 % (0.0-4.3) 10/20/20 14:46 Baso % (Auto) 0.6 % (0.0-1.8) 10/20/20 14:46 Lymph # (Auto) 1.5 K/mm3 (1.2-5.4) 10/20/20 14:46 [place] # (Auto) 0.5 K/mm3 (0.0-0.8) 10/20/20 14:46 Eos # (Auto) 0.1 K/mm3 (0.0-0.4) 10/20/20 14:46 Baso # (Auto) 0.0 K/mm3 (0.0-0.1) 10/20/20 14:46 Seg Neutrophils % 57.5 % (40.0-70.0) 10/20/20 14:46 Seg Neutrophils # 2.9 K/mm3 (1.8-7.7) 10/20/20 14:46 Sodium 141 mmol/L (137-145) 10/20/20 14:46 Potassium 4.8 mmol/L (3.6-5.0) 10/20/20 14:46 Chloride 103.0 mmol/L (98-107) 10/20/20 14:46 Carbon Dioxide 30 mmol/L (22-30) 10/20/20 14:46 Anion Gap 13 mmol/L 10/20/20 14:46 BUN 10 mg/dL (7-17) 10/20/20 14:46 Creatinine 0.7 mg/dL (0.6-1.2) 10/20/20 14:46 Estimated GFR > 60 ml/min 10/20/20 14:46 BUN/Creatinine Ratio 14 % 10/20/20 14:46 Glucose 110 mg/dL (65-100) H 10/20/20 14:46 POC Glucose 82 mg/dL (70-105) 10/19/20 22:37 Hemoglobin A1c 5.0 % (4-6) 10/20/20 14:46 Calcium 9.7 mg/dL (8.4-10.2) 10/20/20 14:46 Total Bilirubin < 0.20 mg/dL (0.1-1.2) 10/20/20 14:46 AST 15 units/L (5-40) 10/20/20 14:46 ALT 11 units/L (7-56) 10/20/20 14:46 Alkaline Phosphatase 96 units/L (35-129) 10/20/20 14:46 Total Protein 6.7 g/dL (6.3-8.2) 10/20/20 14:46 Albumin 3.4 g/dL (3.9-5) L 10/20/20 14:46 Albumin/Globulin Ratio 1.0 % 10/20/20 14:46 Triglycerides 194 mg/dL (2-149) H 10/20/20 14:46 Cholesterol 201 mg/dL (50-199) H 10/20/20 14:46 LDL Cholesterol Direct 120 mg/dL (50-130) 10/20/20 14:46 HDL Cholesterol 51 mg/dL (40-59) 10/20/20 14:46 Cholesterol/HDL Ratio 3.94 % 10/20/20 14:46 TSH 4.050 mlU/mL (0.270-4.200) 10/20/20 14:46 Valproic Acid 54.5 ug/mL (50-100) 10/25/20 14:10 [place]/IV: Voiding Method Toilet Active Medications - Current Medications Current Medications: Generic Name Dose Route Start Last Admin Trade Name Freq PRN Reason Stop Dose Admin Acetaminophen 650 mg 10/23/20 21:28 10/26/20 10:00 Acetaminophen 325 Mg Tab PO 650 mg Q6H PRN Administration Pain, Mild (1-3) Amoxicillin/Clavulanate Potassium 1 each 10/20/20 22:00 10/26/20 09:20 Amoxicillin/K Clav 875/125mg Tab PO 10/27/20 10:01 1 each Q12HR [facility] Administration Protocol Cyclobenzaprine HCl 10 mg 10/20/20 20:00 10/26/20 09:20 Cyclobenzaprine 10 Mg Tab PO 10 mg TID [facility] Administration Divalproex Sodium 500 mg 10/22/20 14:00 10/26/20 09:19 Divalproex Er 500 Mg Tab PO 500 mg TID [facility] Administration Gabapentin 200 mg 10/21/20 09:00 10/26/20 09:19 Gabapentin 100 Mg Cap PO 200 mg TID [facility] Administration Hydrophilic Ointment 1 applic 10/23/20 14:26 10/26/20 10:00 Lip Therapy Vaseline TP 1 applic DIRECT PRN Administration Dry Lips Meloxicam 15 mg 10/21/20 10:00 10/26/20 09:19 Meloxicam 7.5 Mg Tab PO 15 mg QDAY [facility] Administration Pantoprazole Sodium 40 mg 10/23/20 21:30 10/26/20 09:19 Pantoprazole 40 Mg Tab PO 40 mg QDAC [facility] Administration Pravastatin Sodium 80 mg 10/23/20 22:00 10/25/20 21:30 Pravastatin 80 Mg Tab PO 80 mg QHS [facility] Administration Quetiapine Fumarate 200 mg 10/20/20 01:00 10/25/20 21:30 Quetiapine 200 Mg Tab PO 200 mg QHS [facility] Administration Sertraline HCl 75 mg 10/22/20 10:00 10/26/20 09:18 Sertraline 50 Mg Tab PO 75 mg DAILY [facility] Administration Nutrition/Malnutrition Assess - Dietary Evaluation Nutrition/Malnutrition Findings: Nutrition Notes Start: 10/25/20 07:28 Freq: Status: Active Protocol: Document 10/25/20 07:28 LP (Rec: 10/25/20 07:28 LP [id number]) Nutrition Notes Need for Assessment generated from: LOS Initial or Follow up Brief Note Subjective/Other Information Screen of LOS. Pt consuming 100% of meals. Nutrition Intervention Revisit per MD consult or patient Sign Off request:
[2020-10-26] MEDS: QUEtiapine 200 MG TAB PO SCH (21:17)
[2020-10-26] MEDS: PRAVASTATIN 80 MG TAB PO SCH (21:17)
--- NOTE | 2020-10-27 08:40 | Progress Note ---
Subjective Date of service: 10/27/20 Principal diagnosis: MDD Subjective Comment: Per Psych Nurse: Patient spent the day in the activity room interacting with peers. She has multiple somatic complaints. Patient presents to the nursing station leaning on the wall as if she is having difficulty walking due to a headache. She asks for hot tea with caffeine to help her headache. After the patient was handed the tea she immediately straightened up and walked without difficulty. Her gait and behavior changed the moment her hand touched the cup. She denies si/hi/ah/vh. Her appetite is good. She is medication compliant. Will continue to monitor patient for safety. Psych Progress HPI Patient describes a good and stable mood, denies being depressed or excessively nervous. Patient eats and sleeps well. Patient denies panic attacks, recurrent nightmares or flashbacks. Patient denies symptoms suggestive of OCD or PTSD. Patient denies hallucinations, paranoia, thought interference and no features suggestive of hypomania or chris. Patiently completely denies suicidal or homicidal thoughts. Reason for continuing inpatient treatment: Depakote at therapeutic levels, continue to observe for stability and pending discharge for Wednesday. Review of Symptoms: Constitutional: Negative for weight loss ENT: Negative for stridor Respiratory: Negative for cough or hemoptysis All other systems reviewed and are negative MENTAL STATUS EXAMINATION General Appearance and Behavior: Age appropriate, good hygiene, wearing appropriate clothes, good eye contact, cooperative polite with questioning. Cooperation: Participating/engaged Psychomotor Behavior: unremarkable and within normal limits Mood: Good Affect and affective range: congruent with mood Thought Process: Fluent/Logical, Thought Content: Within reality, Speech: Normal volume, Regular rate and rhythm, Intellectual Functioning: Average Suicidal Ideation: Denies SI Homicidal Ideation: Denies HI Impulse Control: Unimpaired Insight and Judgment: Normal insight and judgment, Memory: Normal, Attention: Normal, Orientation: Alert, oriented, Assessment and Plan (1) Bipolar Disorder Treatment Plan Continue current medications Patient admitted for inpatient psychiatric evaluation, medication adjustment and close monitoring The patient's behavior, mood, sleep and appetite will be closely monitored. Patient enrolled in individual and group therapeutic sessions and encouraged to attend. Patient provided with a safe and structured environment. Patient's physical health needs will be addressed by the Hospitalist. Hospitalist Consulted Labs including CBC, CMP, Lipid profile and Hemoglobin A1C levels ordered for baseline reference Social Assessment will be completed and the Cylinder Grinder will work with patient and family to ensure a suitable and safe disposition Medication adjustment will be made as clinically indicated Usual Wellness Confucianist/Preservation: - Start Trazodone 50 mg po QHS & 50 mg po QHS PRN between 10 PM & 2 AM for insomnia - Start Melatonin 5 mg po QHS to promote circadian rhythm - Start [place]-3 for brain health, reduce impulsivity, and as adjunctive treatment for mood disorder, continue upon discharge given overall benefits. - Start B1 prophylaxis with 200 mg po for 5 days The patient agreed on the treatment plan, understood the risk, benefit, alternative treatment, potential consequence of no treatment, and gave informed consent. Initial Certification Inpatient psych services: I certify that the inpatient psychiatric services are required for treatment that could reasonably be expected to improve the patient's condition. Estimated days:2 Post hospital care: primary care provider, psychiatric provider Medications and Allergies Allergies Allergy/AdvReac Type Severity Reaction Status Date / Time No Known Allergies Allergy Verified 10/20/20 00:56 Home Medications Medication Instructions Recorded Confirmed Last Taken Type Acetaminophen [Tylenol] 2 tab PO Q6HR 10/20/20 10/20/20 Unknown History Amoxicillin/Potassium Clav 875 mg PO Q12HR 10/20/20 10/20/20 Unknown History [Augmentin 875-125 Tablet] Cyclobenzaprine [Flexeril 10 MG 10 mg PO TID 10/20/20 10/20/20 Unknown History TAB] Divalproex ER [Depakote ER] 500 mg PO BID 10/20/20 10/20/20 Unknown History Gabapentin 400 mg PO TID 10/20/20 10/20/20 Unknown History Meloxicam [Mobic] 15 mg PO DAILY 10/20/20 10/20/20 Unknown History Omeprazole 40 mg PO DAILY 10/20/20 10/20/20 Unknown History QUEtiapine [SEROquel] 200 mg PO QHS 10/20/20 10/20/20 Unknown History Sertraline [Zoloft] 50 mg PO DAILY 10/20/20 10/20/20 Unknown History Simvastatin 40 mg PO HS 10/20/20 10/20/20 Unknown History Venlafaxine HCl [Venlafaxine HCl 150 mg PO DAILY 10/20/20 10/20/20 Unknown History ER] diazePAM TAB [Valium] 5 mg PO BID 10/20/20 10/20/20 Unknown History traMADoL [Ultram 50 MG tab] 50 mg PO PRN PRN 10/20/20 10/20/20 Unknown History Active Meds: Active Medications Acetaminophen (Acetaminophen 325 Mg Tab) 650 mg PO Q6H PRN PRN Reason: Pain, Mild (1-3) Last Admin: 10/26/20 10:00 Dose: 650 mg Documented by: Amoxicillin/Clavulanate Potassium (Amoxicillin/K Clav 875/125mg Tab) 1 each PO Q12HR [facility]; Protocol Stop: 10/27/20 10:01 Last Admin: 10/26/20 21:16 Dose: 1 each Documented by: Cyclobenzaprine HCl (Cyclobenzaprine 10 Mg Tab) 10 mg PO TID [facility] Last Admin: 10/26/20 20:40 Dose: 10 mg Documented by: Divalproex Sodium (Divalproex Er 500 Mg Tab) 500 mg PO TID [facility] Last Admin: 10/26/20 20:41 Dose: 500 mg Documented by: Gabapentin (Gabapentin 100 Mg Cap) 200 mg PO TID [facility] Last Admin: 10/26/20 20:40 Dose: 200 mg Documented by: Hydrophilic Ointment (Lip Therapy Vaseline) 1 applic TP DIRECT PRN PRN Reason: Dry Lips Last Admin: 10/26/20 10:00 Dose: 1 applic Documented by: Meloxicam (Meloxicam 7.5 Mg Tab) 15 mg PO QDAY [facility] Last Admin: 10/26/20 09:19 Dose: 15 mg Documented by: Pantoprazole Sodium (Pantoprazole 40 Mg Tab) 40 mg PO QDAC [facility] Last Admin: 10/26/20 09:19 Dose: 40 mg Documented by: Pravastatin Sodium (Pravastatin 80 Mg Tab) 80 mg PO QHS [facility] Last Admin: 10/26/20 21:17 Dose: 80 mg Documented by: Quetiapine Fumarate (Quetiapine 200 Mg Tab) 200 mg PO QHS [facility] Last Admin: 10/26/20 21:17 Dose: 200 mg Documented by: Sertraline HCl (Sertraline 50 Mg Tab) 75 mg PO DAILY [facility] Last Admin: 10/26/20 09:18 Dose: 75 mg Documented by: Results - Results Labs/Vitals: Laboratory Last Values WBC 5.1 K/mm3 (4.5-11.0) 10/20/20 14:46 RBC 4.43 M/mm3 (3.65-5.03) 10/20/20 14:46 Hgb 12.9 gm/dl (10.1-14.3) 10/20/20 14:46 Hct 39.5 % (30.3-42.9) 10/20/20 14:46 MCV 89 fl (79-97) 10/20/20 14:46 MCH 29 pg (28-32) 10/20/20 14:46 MCHC 33 % (30-34) 10/20/20 14:46 RDW 14.9 % (13.2-15.2) 10/20/20 14:46 Plt Count 249 K/mm3 (140-440) 10/20/20 14:46 Lymph % (Auto) 29.7 % (13.4-35.0) 10/20/20 14:46 [place] % (Auto) 10.2 % (0.0-7.3) H 10/20/20 14:46 Eos % (Auto) 2.0 % (0.0-4.3) 10/20/20 14:46 Baso % (Auto) 0.6 % (0.0-1.8) 10/20/20 14:46 Lymph # (Auto) 1.5 K/mm3 (1.2-5.4) 10/20/20 14:46 [place] # (Auto) 0.5 K/mm3 (0.0-0.8) 10/20/20 14:46 Eos # (Auto) 0.1 K/mm3 (0.0-0.4) 10/20/20 14:46 Baso # (Auto) 0.0 K/mm3 (0.0-0.1) 10/20/20 14:46 Seg Neutrophils % 57.5 % (40.0-70.0) 10/20/20 14:46 Seg Neutrophils # 2.9 K/mm3 (1.8-7.7) 10/20/20 14:46 Sodium 141 mmol/L (137-145) 10/20/20 14:46 Potassium 4.8 mmol/L (3.6-5.0) 10/20/20 14:46 Chloride 103.0 mmol/L (98-107) 10/20/20 14:46 Carbon Dioxide 30 mmol/L (22-30) 10/20/20 14:46 Anion Gap 13 mmol/L 10/20/20 14:46 BUN 10 mg/dL (7-17) 10/20/20 14:46 Creatinine 0.7 mg/dL (0.6-1.2) 10/20/20 14:46 Estimated GFR > 60 ml/min 10/20/20 14:46 BUN/Creatinine Ratio 14 % 10/20/20 14:46 Glucose 110 mg/dL (65-100) H 10/20/20 14:46 POC Glucose 82 mg/dL (70-105) 10/19/20 22:37 Hemoglobin A1c 5.0 % (4-6) 10/20/20 14:46 Calcium 9.7 mg/dL (8.4-10.2) 10/20/20 14:46 Total Bilirubin < 0.20 mg/dL (0.1-1.2) 10/20/20 14:46 AST 15 units/L (5-40) 10/20/20 14:46 ALT 11 units/L (7-56) 10/20/20 14:46 Alkaline Phosphatase 96 units/L (35-129) 10/20/20 14:46 Total Protein 6.7 g/dL (6.3-8.2) 10/20/20 14:46 Albumin 3.4 g/dL (3.9-5) L 10/20/20 14:46 Albumin/Globulin Ratio 1.0 % 10/20/20 14:46 Triglycerides 194 mg/dL (2-149) H 10/20/20 14:46 Cholesterol 201 mg/dL (50-199) H 10/20/20 14:46 LDL Cholesterol Direct 120 mg/dL (50-130) 10/20/20 14:46 HDL Cholesterol 51 mg/dL (40-59) 10/20/20 14:46 Cholesterol/HDL Ratio 3.94 % 10/20/20 14:46 TSH 4.050 mlU/mL (0.270-4.200) 10/20/20 14:46 Valproic Acid 54.5 ug/mL (50-100) 10/25/20 14:10 Last Vital Signs Temp 97.9 F 10/26/20 19:19 Pulse 86 10/26/20 19:19 Resp 16 10/26/20 19:19 BP 103/48 10/26/20 19:19 Pulse Ox 93 10/26/20 19:19
[2020-10-27] MEDS: GABAPENTIN 100 MG CAP PO SCH ×3 (08:42→21:34)
[2020-10-27] MEDS: CYCLOBENZAPRINE 10 MG TAB PO SCH ×3 (08:42→21:34)
[2020-10-27] MEDS: PANTOPRAZOLE 40 MG TAB PO SCH (08:42)
[2020-10-27] MEDS: DIVALPROEX ER 500 MG TAB PO SCH ×3 (08:42→21:33)
[2020-10-27] MEDS: AMOXICILLIN/K CLAV 875/125MG TAB PO SCH (09:16)
[2020-10-27] MEDS: SERTRALINE 50 MG TAB PO SCH (09:16)
[2020-10-27] MEDS: MELOXICAM 7.5 MG TAB PO SCH (09:16)
[2020-10-27] MEDS: ACETAMINOPHEN 325 MG TAB PO PRN ×2 (09:17→21:40)
[2020-10-27] MEDS: LIP THERAPY VASELINE TP PRN (09:17)
[2020-10-27] MEDS: QUEtiapine 200 MG TAB PO SCH (21:33)
[2020-10-27] MEDS: PRAVASTATIN 80 MG TAB PO SCH (21:42)
[2020-10-28] MEDS: ACETAMINOPHEN 325 MG TAB PO PRN (06:13)
--- NOTE | 2020-10-28 07:48 | Progress Note ---
Subjective Date of service: 10/28/20 Principal diagnosis: MDD Subjective Comment: Per Psych Nurse: Patient has spent the day in the activity room interacting with peers. She has made multiple trips to the nurses station asking for multiple items. She denies si/hi/ah/vh. Her appetite is good. She is medication compliant. Patient presents as comfortable here. Will continue to monitor patient for safety. Psych Progress HPI Patient seen this AM, reports she is in a going home mood and I shouldnt tease her about possible discharge, she laughs. SHe denies SI, HI, has been medication compliant, no auditory hallucinations, no intrusive thought disorders. Reason for continuing inpatient treatment: Planning for safety discharge. Review of Symptoms: Constitutional: Negative for weight loss ENT: Negative for stridor Respiratory: Negative for cough or hemoptysis All other systems reviewed and are negative MENTAL STATUS EXAMINATION General Appearance and Behavior: Age appropriate, good hygiene, wearing appropriate clothes, good eye contact, cooperative polite with questioning. Cooperation: Participating/engaged Psychomotor Behavior: unremarkable and within normal limits Mood: Good Affect and affective range: congruent with mood Thought Process: Fluent/Logical, Thought Content: Within reality, Speech: Normal volume, Regular rate and rhythm, Intellectual Functioning: Average Suicidal Ideation: Denies SI Homicidal Ideation: Denies HI Impulse Control: Unimpaired Insight and Judgment: Normal insight and judgment, Memory: Normal, Attention: Normal, Orientation: Alert, oriented, Assessment and Plan (1) Bipolar Disorder Treatment Plan Continue current medications Patient admitted for inpatient psychiatric evaluation, medication adjustment and close monitoring The patient's behavior, mood, sleep and appetite will be closely monitored. Patient enrolled in individual and group therapeutic sessions and encouraged to attend. Patient provided with a safe and structured environment. Patient's physical health needs will be addressed by the Hospitalist. Hospital ist Consulted Labs including CBC, CMP, Lipid profile and Hemoglobin A1C levels ordered for baseline reference Social Assessment will be completed and the Core Fitter will work with patient and family to ensure a suitable and safe disposition Medication adjustment will be made as clinically indicated Usual Wellness Catholic/Preservation: - Start Trazodone 50 mg po QHS & 50 mg po QHS PRN between 10 PM & 2 AM for insomnia - Start Melatonin 5 mg po QHS to promote circadian rhythm - Start [place]-3 for brain health, reduce impulsivity, and as adjunctive treatment for mood disorder, continue upon discharge given overall benefits. - Start B1 prophylaxis with 200 mg po for 5 days The patient agreed on the treatment plan, understood the risk, benefit, alternative treatment, potential consequence of no treatment, and gave informed consent. Initial Certification Inpatient psych services: I certify that the inpatient psychiatric services are required for treatment that could reasonably be expected to improve the patient's condition. Estimated days:2 Post hospital care: primary care provider, psychiatric provider Medications and Allergies Allergies Allergy/AdvReac Type Severity Reaction Status Date / Time No Known Allergies Allergy Verified 10/20/20 00:56 Home Medications Medication Instructions Recorded Confirmed Last Taken Type Acetaminophen [Tylenol] 2 tab PO Q6HR 10/20/20 10/20/20 Unknown History Amoxicillin/Potassium Clav 875 mg PO Q12HR 10/20/20 10/20/20 Unknown History [Augmentin 875-125 Tablet] Cyclobenzaprine [Flexeril 10 MG 10 mg PO TID 10/20/20 10/20/20 Unknown History TAB] Divalproex ER [Depakote ER] 500 mg PO BID 10/20/20 10/20/20 Unknown History Gabapentin 400 mg PO TID 10/20/20 10/20/20 Unknown History Meloxicam [Mobic] 15 mg PO DAILY 10/20/20 10/20/20 Unknown History Omeprazole 40 mg PO DAILY 10/20/20 10/20/20 Unknown History QUEtiapine [SEROquel] 200 mg PO QHS 10/20/20 10/20/20 Unknown History Sertraline [Zoloft] 50 mg PO DAILY 10/20/20 10/20/20 Unknown History Simvastatin 40 mg PO HS 10/20/20 10/20/20 Unknown History Venlafaxine HCl [Venlafaxine HCl 150 mg PO DAILY 10/20/20 10/20/20 Unknown History ER] diazePAM TAB [Valium] 5 mg PO BID 10/20/20 10/20/20 Unknown History traMADoL [Ultram 50 MG tab] 50 mg PO PRN PRN 10/20/20 10/20/20 Unknown History Active Meds: Active Medications Acetaminophen (Acetaminophen 325 Mg Tab) 650 mg PO Q6H PRN PRN Reason: Pain, Mild (1-3) Last Admin: 10/28/20 06:13 Dose: 650 mg Documented by: Cyclobenzaprine HCl (Cyclobenzaprine 10 Mg Tab) 10 mg PO TID [facility] Last Admin: 10/27/20 21:34 Dose: 10 mg Documented by: Divalproex Sodium (Divalproex Er 500 Mg Tab) 500 mg PO TID [facility] Last Admin: 10/27/20 21:33 Dose: 500 mg Documented by: Gabapentin (Gabapentin 100 Mg Cap) 200 mg PO TID [facility] Last Admin: 10/27/20 21:34 Dose: 200 mg Documented by: Hydrophilic Ointment (Lip Therapy Vaseline) 1 applic TP DIRECT PRN PRN Reason: Dry Lips Last Admin: 10/27/20 09:17 Dose: 1 applic Documented by: Meloxicam (Meloxicam 7.5 Mg Tab) 15 mg PO QDAY [facility] Last Admin: 10/27/20 09:16 Dose: 15 mg Documented by: Pantoprazole Sodium (Pantoprazole 40 Mg Tab) 40 mg PO QDAC [facility] Last Admin: 10/27/20 08:42 Dose: 40 mg Documented by: Pravastatin Sodium (Pravastatin 80 Mg Tab) 80 mg PO QHS [facility] Last Admin: 10/27/20 21:42 Dose: 80 mg Documented by: Quetiapine Fumarate (Quetiapine 200 Mg Tab) 200 mg PO QHS [facility] Last Admin: 10/27/20 21:33 Dose: 200 mg Documented by: Sertraline HCl (Sertraline 50 Mg Tab) 75 mg PO DAILY [facility] Last Admin: 10/27/20 09:16 Dose: 75 mg Documented by: Results - Results Labs/Vitals: Laboratory Last Values WBC 5.1 K/mm3 (4.5-11.0) 10/20/20 14:46 RBC 4.43 M/mm3 (3.65-5.03) 10/20/20 14:46 Hgb 12.9 gm/dl (10.1-14.3) 10/20/20 14:46 Hct 39.5 % (30.3-42.9) 10/20/20 14:46 MCV 89 fl (79-97) 10/20/20 14:46 MCH 29 pg (28-32) 10/20/20 14:46 MCHC 33 % (30-34) 10/20/20 14:46 RDW 14.9 % (13.2-15.2) 10/20/20 14:46 Plt Count 249 K/mm3 (140-440) 10/20/20 14:46 Lymph % (Auto) 29.7 % (13.4-35.0) 10/20/20 14:46 [place] % (Auto) 10.2 % (0.0-7.3) H 10/20/20 14:46 Eos % (Auto) 2.0 % (0.0-4.3) 10/20/20 14:46 Baso % (Auto) 0.6 % (0.0-1.8) 10/20/20 14:46 Lymph # (Auto) 1.5 K/mm3 (1.2-5.4) 10/20/20 14:46 [place] # (Auto) 0.5 K/mm3 (0.0-0.8) 10/20/20 14:46 Eos # (Auto) 0.1 K/mm3 (0.0-0.4) 10/20/20 14:46 Baso # (Auto) 0.0 K/mm3 (0.0-0.1) 10/20/20 14:46 Seg Neutrophils % 57.5 % (40.0-70.0) 10/20/20 14:46 Seg Neutrophils # 2.9 K/mm3 (1.8-7.7) 10/20/20 14:46 Sodium 141 mmol/L (137-145) 10/20/20 14:46 Potassium 4.8 mmol/L (3.6-5.0) 10/20/20 14:46 Chloride 103.0 mmol/L (98-107) 10/20/20 14:46 Carbon Dioxide 30 mmol/L (22-30) 10/20/20 14:46 Anion Gap 13 mmol/L 10/20/20 14:46 BUN 10 mg/dL (7-17) 10/20/20 14:46 Creatinine 0.7 mg/dL (0.6-1.2) 10/20/20 14:46 Estimated GFR > 60 ml/min 10/20/20 14:46 BUN/Creatinine Ratio 14 % 10/20/20 14:46 Glucose 110 mg/dL (65-100) H 10/20/20 14:46 POC Glucose 82 mg/dL (70-105) 10/19/20 22:37 Hemoglobin A1c 5.0 % (4-6) 10/20/20 14:46 Calcium 9.7 mg/dL (8.4-10.2) 10/20/20 14:46 Total Bilirubin < 0.20 mg/dL (0.1-1.2) 10/20/20 14:46 AST 15 units/L (5-40) 10/20/20 14:46 ALT 11 units/L (7-56) 10/20/20 14:46 Alkaline Phosphatase 96 units/L (35-129) 10/20/20 14:46 Total Protein 6.7 g/dL (6.3-8.2) 10/20/20 14:46 Albumin 3.4 g/dL (3.9-5) L 10/20/20 14:46 Albumin/Globulin Ratio 1.0 % 10/20/20 14:46 Triglycerides 194 mg/dL (2-149) H 10/20/20 14:46 Cholesterol 201 mg/dL (50-199) H 10/20/20 14:46 LDL Cholesterol Direct 120 mg/dL (50-130) 10/20/20 14:46 HDL Cholesterol 51 mg/dL (40-59) 10/20/20 14:46 Cholesterol/HDL Ratio 3.94 % 10/20/20 14:46 TSH 4.050 mlU/mL (0.270-4.200) 10/20/20 14:46 Valproic Acid 54.5 ug/mL (50-100) 10/25/20 14:10 Last Vital Signs Temp 97.9 F 10/27/20 19:17 Pulse 86 10/27/20 19:17 Resp 14 10/28/20 06:13 BP 107/62 10/27/20 19:17 Pulse Ox 94 10/27/20 19:17
[2020-10-28] MEDS: PANTOPRAZOLE 40 MG TAB PO SCH (10:18)
[2020-10-28] MEDS: DIVALPROEX ER 500 MG TAB PO SCH (10:18)
[2020-10-28] MEDS: MELOXICAM 7.5 MG TAB PO SCH (10:18)
[2020-10-28] MEDS: SERTRALINE 50 MG TAB PO SCH (10:19)
[2020-10-28] MEDS: GABAPENTIN 100 MG CAP PO SCH (10:20)
[2020-10-28] MEDS: LIP THERAPY VASELINE TP PRN (11:02)
--- NOTE | 2020-10-28 11:37 | Discharge Summary ---
Providers - Providers Date of Admission: 10/19/20 22:23 Date of discharge: 10/28/20 Attending physician: CAROLINE WHEAT MD 10/19/20 08:28 Consult to Physician [CONS] Routine Comment: Consulting Provider: MIRYAM ROBLERO Physician Instructions: Reason For Exam: manage medical conditons Primary care physician: SPECIALIST PHYSICIAN Hospitalization Reason for admission: MDD Condition: Good Hospital course: The patient was provided inpatient psychiatric treatment with safe and supportive environment, group/individual therapy, psychiatric medication, medication adjustment, adverse effect monitor, medical evaluation, medical treatment, social service assessment, social support meeting, placement assessment and psycho-education. The patients mood, cognition, behavior, motivation, compliance to treatment and appreciation on family/social support are improved and stabilized. At the time of discharge, the patient had no suicidal ideas, no homicidal ideas, no aggressive thoughts, no endangering behavior and no debilitating adverse effects. The patient agareed on the treatment plan, understood the risk, benefit, alternative treatment, potential consequence of no treatment, and gave informed consent. Disposition: DC-01 TO HOME OR SELFCARE Allergies/Adverse Reactions: Allergies No Known Allergies Allergy (Verified 10/20/20 00:56) Vital Signs: Last Vital Signs Temp 97.9 F 10/27/20 19:17 Pulse 86 10/27/20 19:17 Resp 14 10/28/20 06:13 BP 107/62 10/27/20 19:17 Pulse Ox 94 10/27/20 19:17 Last Lab: Laboratory Last Values WBC 5.1 K/mm3 (4.5-11.0) 10/20/20 14:46 RBC 4.43 M/mm3 (3.65-5.03) 10/20/20 14:46 Hgb 12.9 gm/dl (10.1-14.3) 10/20/20 14:46 Hct 39.5 % (30.3-42.9) 10/20/20 14:46 MCV 89 fl (79-97) 10/20/20 14:46 MCH 29 pg (28-32) 10/20/20 14:46 MCHC 33 % (30-34) 10/20/20 14:46 RDW 14.9 % (13.2-15.2) 10/20/20 14:46 Plt Count 249 K/mm3 (140-440) 10/20/20 14:46 Lymph % (Auto) 29.7 % (13.4-35.0) 10/20/20 14:46 [place] % (Auto) 10.2 % (0.0-7.3) H 10/20/20 14:46 Eos % (Auto) 2.0 % (0.0-4.3) 10/20/20 14:46 Baso % (Auto) 0.6 % (0.0-1.8) 10/20/20 14:46 Lymph # (Auto) 1.5 K/mm3 (1.2-5.4) 10/20/20 14:46 [place] # (Auto) 0.5 K/mm3 (0.0-0.8) 10/20/20 14:46 Eos # (Auto) 0.1 K/mm3 (0.0-0.4) 10/20/20 14:46 Baso # (Auto) 0.0 K/mm3 (0.0-0.1) 10/20/20 14:46 Seg Neutrophils % 57.5 % (40.0-70.0) 10/20/20 14:46 Seg Neutrophils # 2.9 K/mm3 (1.8-7.7) 10/20/20 14:46 Sodium 141 mmol/L (137-145) 10/20/20 14:46 Potassium 4.8 mmol/L (3.6-5.0) 10/20/20 14:46 Chloride 103.0 mmol/L (98-107) 10/20/20 14:46 Carbon Dioxide 30 mmol/L (22-30) 10/20/20 14:46 Anion Gap 13 mmol/L 10/20/20 14:46 BUN 10 mg/dL (7-17) 10/20/20 14:46 Creatinine 0.7 mg/dL (0.6-1.2) 10/20/20 14:46 Estimated GFR > 60 ml/min 10/20/20 14:46 BUN/Creatinine Ratio 14 % 10/20/20 14:46 Glucose 110 mg/dL (65-100) H 10/20/20 14:46 POC Glucose 82 mg/dL (70-105) 10/19/20 22:37 Hemoglobin A1c 5.0 % (4-6) 10/20/20 14:46 Calcium 9.7 mg/dL (8.4-10.2) 10/20/20 14:46 Total Bilirubin < 0.20 mg/dL (0.1-1.2) 10/20/20 14:46 AST 15 units/L (5-40) 10/20/20 14:46 ALT 11 units/L (7-56) 10/20/20 14:46 Alkaline Phosphatase 96 units/L (35-129) 10/20/20 14:46 Total Protein 6.7 g/dL (6.3-8.2) 10/20/20 14:46 Albumin 3.4 g/dL (3.9-5) L 10/20/20 14:46 Albumin/Globulin Ratio 1.0 % 10/20/20 14:46 Triglycerides 194 mg/dL (2-149) H 10/20/20 14:46 Cholesterol 201 mg/dL (50-199) H 10/20/20 14:46 LDL Cholesterol Direct 120 mg/dL (50-130) 10/20/20 14:46 HDL Cholesterol 51 mg/dL (40-59) 10/20/20 14:46 Cholesterol/HDL Ratio 3.94 % 10/20/20 14:46 TSH 4.050 mlU/mL (0.270-4.200) 10/20/20 14:46 Valproic Acid 54.5 ug/mL (50-100) 10/25/20 14:10 Core Measure Documentation - Palliative Care Palliative Care/ Comfort Measures: Not Applicable - Core Measures Any of the following diagnoses?: none Exam - Constitutional Vitals: Temp Pulse Resp BP Pulse Ox 97.9 F 86 14 107/62 94 10/27/20 19:17 10/27/20 19:17 10/28/20 06:13 10/27/20 19:17 10/27/20 19:17 - EENT Eyes: Present: PERRL, EOM intact ENT: hearing intact, clear oral mucosa - Neck Neck: Present: supple, normal ROM - Respiratory Respiratory effort: normal - Abdominal Female genitourinary: Present: deferred - Integumentary Integumentary: Present: clear, warm Plan Care Plan Goals: Goals: Maintain good and stable mental health. Plan of Treatment: The patient should be compliant with medications, not to use drugs and not to drink alcohol. The patient understands that if suicidal ideas, homicidal ideas, or any endangering thoughts arise, the patient should immediately seek for emergent assistance including but not limited to crisis hot line and emergency room. Follow up with outpatient Psychiatrist and PCP within 7 - 14 days of discharge. Follow up with: PRIMARY CARE,MD [Primary Care Provider] - 7 Days Prescriptions: QUEtiapine [SEROquel] 200 mg PO QHS #30 tablet Divalproex ER [Depakote ER] 500 mg PO BID #60 tab Sertraline [Zoloft] 50 mg PO DAILY #30 tab
[2020-10-28] MEDS: CYCLOBENZAPRINE 10 MG TAB PO SCH (11:49)
[2020-10-28 14:03] VITALS: BP 99/58
== END 2020-10-28 13:15 | disposition home or self-care (01) | DRG 885 ==
LOC: UNDOADMIN 06:11 → 3A 06:11 → 5A 22:23
PROVIDERS: ADMIT Psychiatry & Neurology Psychiatry; ATTEND Psychiatry & Neurology Psychiatry
DX: F31.9 Bipolar disorder, unspecified (principal); I10 Essential (primary) hypertension; E78.5 Hyperlipidemia, unspecified; K21.9 Gastro-esophageal reflux disease without esophagitis; E66.9 Obesity, unspecified; J45.909 Unspecified asthma, uncomplicated; Z68.30 Body mass index [BMI] 30.0-30.9, adult; Z79.891 Long term (current) use of opiate analgesic; Z79.01 Long term (current) use of anticoagulants; Z79.899 Other long term (current) drug therapy; Z63.5 Disruption of family by separation and divorce
CPT/HCPCS: 36415; 80053; 80061; 80164; 82962; 83036; 84443; 85025; G0378; A9270-GY